=== PATIENT | male | born 1935 | race Caucasian/White ===

== ENCOUNTER 2017-10-21 08:40 | Inpatient (IN) | payer MEDICARE ==
[~2017-10-21] VITALS: Ht 175.3 cm; Wt 104.8 kg
[~2017-10-21 08:40] MED LIST: ASPI81EC PO; CALCA500CH; FERR325; GLIM4 PO; METF500C PO; NAPR220; RXHYDACE PO; SIMV10 PO; TRIHYD253A PO; Zestril30 MG
[2017-10-21 09:39] LABS: Base Excess Venous -12.4 mmol/L; Bicarbonate Venous 15.1 mmol/L (24.0-30.0); PCO2 Venous 44.2 mmHg (38-42); PO2 Venous 83.1 mmHg (38-42)
[2017-10-21 09:40] LABS: pH Blood Venous 7.17 (7.34-7.37)
[2017-10-21 09:41] LABS: BASOPHILS ABSOLUTE AUTO 0.02 K/mm3 (0.00-0.23); BASOPHILS PERCENT AUTO 0 % (0-2); EOSINOPHILS ABSOLUTE AUTO 0.02 K/mm3 (0.00-0.68); EOSINOPHILS PERCENT AUTO 0 % (0-6); Hematocrit 31.7 % (37.0-53.0); Hemoglobin 9.8 g/dL (13.5-17.5); IMMATURE GRAN ABSOLUTE AUTO 0.03 K/mm3 (0.00-0.10); IMMATURE GRAN PERCENT AUTO 0 % (0-1); LYMPHOCYTES ABSOLUTE AUTO 0.98 K/mm3 (0.84-5.20); LYMPHOCYTES PERCENT AUTO 14 % (21-46); MONOCYTES ABSOLUTE AUTO 0.48 K/mm3 (0.16-1.47); MONOCYTES PERCENT AUTO 7 % (4-13); Mean Corpuscular HGB 29.8 pg (26.0-34.0); Mean Corpuscular HGB Conc 30.9 g/dL (31.5-36.5); Mean Corpuscular Volume 96 fL (80-100); Mean Platelet Volume 9.4 fL (9.1-12.4); NEUTROPHILS ABSOLUTE AUTO 5.61 K/mm3 (1.96-9.15); NEUTROPHILS PERCENT AUTO 79 % (41-73); Platelet Count 235 K/mm3 (150-400); Red Blood Cell Count 3.29 M/mm3 (4.30-5.90); White Blood Cell Count 7.14 K/mm3 (4.00-11.30)
[2017-10-21 10:09] LABS: Magnesium, Blood 2.6 mg/dL (1.6-2.4); Troponin I <0.015 ng/mL (0.000-0.040)
[2017-10-21 10:13] LABS: Thyroid Stimulating Hormone 0.618 uIU/mL (0.360-4.800)
[2017-10-21 10:18] LABS: Alanine Aminotransfer (ALT/SGP 40 U/L (12-78); Albumin, Blood 3.9 g/dL (3.4-5.0); Albumin/Globulin Ratio 0.8 (0.8-1.8); Alk Phos 95 U/L (50-136); Anion Gap 11 mmol/L (6-16); Aspartate Aminotrans (AST/SGOT 35 U/L (12-37); Bilirubin, Total 0.4 mg/dL (0.1-1.0); Blood Urea Nitrogen 65 mg/dL (8-24); Bun/Creatinine Ratio 27.4 (12.0-20.0); CO2, Blood 17 mmol/L (21-32); Calcium, Blood 8.3 mg/dL (8.5-10.1); Chloride, Blood 114 mmol/L (98-108); Creatinine, Blood 2.37 mg/dL (0.60-1.20); Globulin, Blood 4.7 g/dL (2.2-4.0); Glomerular Filtration Rate 28 (60-); Glucose, Blood 29 mg/dL (70-99); Potassium, Blood 5.2 mmol/L (3.5-5.5); Sodium, Blood 142 mmol/L (136-145); Total Protein, Blood 8.6 g/dL (6.4-8.2)
[2017-10-21 12:22] LABS: Source, Urine Voided
[2017-10-21 12:25] LABS: Bilirubin, Urine Neg (Neg); Blood, Urine 2+ (Neg); Glucose Qualitative, Urine Neg (Neg); Ketones, Urine Neg (Neg); Leukocyte Esterase, Urine 1+ (Neg); Nitrite, Urine Neg (Neg); Protein, Urine 2+ (Neg); Urobilinogen, Urine NORM (Normal)
[2017-10-21 12:30] LABS: Appearance, Urine Clear (Clear); Color, Urine Pale Yellow (P-Yellow)
[2017-10-21 12:31] LABS: Bacteria Not Seen /hpf; Squamous Epithelial Cells Not Seen /hpf (Few)
[2017-10-21 12:32] LABS: Amorphous Light (0-Heavy); Hyaline Casts 0-2 /lpf (0-2)
[2017-10-22 04:45] LABS: Hemoglobin 8.1 g/dL (13.5-17.5); Mean Corpuscular HGB 29.3 pg (26.0-34.0); Mean Corpuscular HGB Conc 31.2 g/dL (31.5-36.5); Mean Corpuscular Volume 94 fL (80-100); Mean Platelet Volume 9.9 fL (9.1-12.4); Platelet Count 196 K/mm3 (150-400); RDW Coefficient Variation 16.5 % (11.7-14.2); RDW Standard Deviation 56.3 fL (35.1-46.3); Red Blood Cell Count 2.76 M/mm3 (4.30-5.90); White Blood Cell Count 6.95 K/mm3 (4.00-11.30)
[2017-10-22 05:03] LABS: Bun/Creatinine Ratio 25.7 (12.0-20.0); Calcium, Blood 7.6 mg/dL (8.5-10.1); Creatinine, Blood 2.49 mg/dL (0.60-1.20); Potassium, Blood 5.7 mmol/L (3.5-5.5)
[2017-10-22 05:12] LABS: Percent Saturation 13.5 % (20.0-50.0)
[2017-10-22 15:52] LABS: Bun/Creatinine Ratio 25.9 (12.0-20.0); Calcium, Blood 8.2 mg/dL (8.5-10.1); Creatinine, Blood 2.24 mg/dL (0.60-1.20); Potassium, Blood 5.9 mmol/L (3.5-5.5); Uric Acid, Blood 7.3 mg/dL (3.5-7.2)
[2017-10-22 15:55] LABS: Appearance, Urine Clear (Clear); Bilirubin, Urine Neg (Neg); Blood, Urine Neg (Neg); Color, Urine Yellow (P-Yellow); Glucose Qualitative, Urine Neg (Neg); Ketones, Urine Neg (Neg); Leukocyte Esterase, Urine 1+ (Neg); Nitrite, Urine Neg (Neg); Protein, Urine 1+ (Neg); Specific Gravity, Urine 1.015 (1.003-1.022); Urobilinogen, Urine NORM (Normal)
[2017-10-22 16:03] LABS: Albumin, Blood 3.2 g/dL (3.4-5.0); Anion Gap 9 mmol/L (6-16); Blood Urea Nitrogen 59 mg/dL (8-24); Bun/Creatinine Ratio 27.4 (12.0-20.0); CO2, Blood 20 mmol/L (21-32); Calcium, Blood 8.2 mg/dL (8.5-10.1); Chloride, Blood 113 mmol/L (98-108); Creatinine, Blood 2.15 mg/dL (0.60-1.20); Glomerular Filtration Rate 31 (60-); Glucose, Blood 84 mg/dL (70-99); Phosphorus, Blood 3.5 mg/dL (2.5-4.9); Potassium, Blood 5.9 mmol/L (3.5-5.5); Sodium, Blood 142 mmol/L (136-145)
[2017-10-22 16:11] LABS: Bacteria Not Seen /hpf; Red Blood Cells, Urine Not Seen /hpf (0-2); Squamous Epithelial Cells Not Seen /hpf (Few); White Blood Cells, Urine Not Seen /hpf (0-5); Yeast/Fungi Urine Not Seen /hpf
[2017-10-22 20:46] LABS: Albumin, Blood 3.2 g/dL (3.4-5.0); Anion Gap 9 mmol/L (6-16); Blood Urea Nitrogen 59 mg/dL (8-24); CO2, Blood 24 mmol/L (21-32); Chloride, Blood 106 mmol/L (98-108); Creatinine, Blood 2.27 mg/dL (0.60-1.20); Glomerular Filtration Rate 29 (60-); Glucose, Blood 199 mg/dL (70-99); Phosphorus, Blood 3.4 mg/dL (2.5-4.9); Sodium, Blood 139 mmol/L (136-145)
[2017-10-23 03:48] LABS: BASOPHILS ABSOLUTE AUTO 0.03 K/mm3 (0.00-0.23); BASOPHILS PERCENT AUTO 0 % (0-2); EOSINOPHILS ABSOLUTE AUTO 0.35 K/mm3 (0.00-0.68); EOSINOPHILS PERCENT AUTO 5 % (0-6); Hematocrit 26.3 % (37.0-53.0); Hemoglobin 8.3 g/dL (13.5-17.5); IMMATURE GRAN ABSOLUTE AUTO 0.04 K/mm3 (0.00-0.10); IMMATURE GRAN PERCENT AUTO 1 % (0-1); LYMPHOCYTES PERCENT AUTO 30 % (21-46); MONOCYTES ABSOLUTE AUTO 0.67 K/mm3 (0.16-1.47); MONOCYTES PERCENT AUTO 9 % (4-13); Mean Corpuscular HGB 28.8 pg (26.0-34.0); Mean Corpuscular HGB Conc 31.6 g/dL (31.5-36.5); Mean Platelet Volume 9.9 fL (9.1-12.4); NEUTROPHILS ABSOLUTE AUTO 4.32 K/mm3 (1.96-9.15); NEUTROPHILS PERCENT AUTO 56 % (41-73); Platelet Count 212 K/mm3 (150-400); RDW Coefficient Variation 15.9 % (11.7-14.2); RDW Standard Deviation 53.1 fL (35.1-46.3); Red Blood Cell Count 2.88 M/mm3 (4.30-5.90); White Blood Cell Count 7.71 K/mm3 (4.00-11.30)
[2017-10-23 03:49] LABS: Mean Corpuscular Volume 91 fL (80-100)
[2017-10-23 04:14] LABS: Albumin, Blood 3.1 g/dL (3.4-5.0); Anion Gap 8 mmol/L (6-16); Blood Urea Nitrogen 60 mg/dL (8-24); Bun/Creatinine Ratio 27.6 (12.0-20.0); CO2, Blood 26 mmol/L (21-32); Calcium, Blood 7.5 mg/dL (8.5-10.1); Chloride, Blood 106 mmol/L (98-108); Creatinine, Blood 2.17 mg/dL (0.60-1.20); Glomerular Filtration Rate 31 (60-); Glucose, Blood 144 mg/dL (70-99); Phosphorus, Blood 4.1 mg/dL (2.5-4.9); Potassium, Blood 4.4 mmol/L (3.5-5.5); Sodium, Blood 140 mmol/L (136-145)
[2017-10-24] MEDS ORDERED: LISI20 PO (00:17)
[2017-10-24 03:48] LABS: BASOPHILS ABSOLUTE AUTO 0.02 K/mm3 (0.00-0.23); BASOPHILS PERCENT AUTO 0 % (0-2); EOSINOPHILS ABSOLUTE AUTO 0.27 K/mm3 (0.00-0.68); EOSINOPHILS PERCENT AUTO 3 % (0-6); Hematocrit 25.8 % (37.0-53.0); Hemoglobin 8.2 g/dL (13.5-17.5); IMMATURE GRAN ABSOLUTE AUTO 0.03 K/mm3 (0.00-0.10); IMMATURE GRAN PERCENT AUTO 0 % (0-1); LYMPHOCYTES ABSOLUTE AUTO 1.61 K/mm3 (0.84-5.20); LYMPHOCYTES PERCENT AUTO 19 % (21-46); MONOCYTES ABSOLUTE AUTO 0.81 K/mm3 (0.16-1.47); MONOCYTES PERCENT AUTO 10 % (4-13); Mean Corpuscular HGB 28.6 pg (26.0-34.0); Mean Corpuscular HGB Conc 31.8 g/dL (31.5-36.5); Mean Corpuscular Volume 90 fL (80-100); Mean Platelet Volume 9.6 fL (9.1-12.4); NEUTROPHILS ABSOLUTE AUTO 5.66 K/mm3 (1.96-9.15); NEUTROPHILS PERCENT AUTO 67 % (41-73); Platelet Count 220 K/mm3 (150-400); RDW Coefficient Variation 15.6 % (11.7-14.2); Red Blood Cell Count 2.87 M/mm3 (4.30-5.90)
[2017-10-24 04:03] LABS: Anion Gap 7 mmol/L (6-16); Blood Urea Nitrogen 48 mg/dL (8-24); CO2, Blood 29 mmol/L (21-32); Calcium, Blood 7.7 mg/dL (8.5-10.1); Chloride, Blood 107 mmol/L (98-108); Creatinine, Blood 1.78 mg/dL (0.60-1.20); Glomerular Filtration Rate 39 (60-); Glucose, Blood 101 mg/dL (70-99); Phosphorus, Blood 3.3 mg/dL (2.5-4.9); Potassium, Blood 4.3 mmol/L (3.5-5.5); Sodium, Blood 143 mmol/L (136-145)
[2017-10-24] MEDS ORDERED: FERROUS SULFATE PO (12:07)
[2017-10-24] MEDS ORDERED: AMLO5 PO (12:10)
[2017-10-26 14:10] LABS: ALBUMIN 3.2 g/dL (2.9-4.4); ALPHA-1-GLOBULIN 0.2 g/dL (0.0-0.4); ALPHA-2-GLOBULIN 0.9 g/dL (0.4-1.0); GAMMA GLOBULIN 1.3 g/dL (0.4-1.8); GLOBULIN, TOTAL 3.3 g/dL (2.2-3.9); IMMUNOGLOBULIN A, QN, SERUM 292 mg/dL (61-437); IMMUNOGLOBULIN G, QN, SERUM 1157 mg/dL (700-1600); IMMUNOGLOBULIN M, QN, SERUM 50 mg/dL (15-143); M-SPIKE Not Observed g/dL (Not Observed); PROTEIN, TOTAL, SERUM 6.5 g/dL (6.0-8.5)
== END 2017-10-24 15:38 | disposition home or self-care (01) | DRG 243 ==
LOC: ER 08:40 → MEDS 08:41 → PCU 12:33 → MEDS 12:35 → PCU 18:32 → MEDS 18:33 → PCU 18:55
PROVIDERS: Emergency Medicine; Internal Medicine
PROC: 0JH606Z Insertion of Pacemaker, Dual Chamber into Chest Subcutaneous Tissue and Fascia, Open Approach (ICD-10-PCS; principal; 2017-10-23)
PROC: 02H63JZ Insertion of Pacemaker Lead into Right Atrium, Percutaneous Approach (ICD-10-PCS; 2017-10-23)
PROC: 02HK3JZ Insertion of Pacemaker Lead into Right Ventricle, Percutaneous Approach (ICD-10-PCS; 2017-10-23)
DX: I44.0 Atrioventricular block, first degree (principal); N17.9 Acute kidney failure, unspecified; E87.2 Acidosis; R00.1 Bradycardia, unspecified; I44.2 Atrioventricular block, complete; T38.3X1A Poisoning by insulin and oral hypoglycemic [antidiabetic] drugs, accidental (unintentional), initial encounter; Z79.84 Long term (current) use of oral hypoglycemic drugs; D50.9 Iron deficiency anemia, unspecified; R53.1 Weakness; E11.649 Type 2 diabetes mellitus with hypoglycemia without coma; I25.10 Atherosclerotic heart disease of native coronary artery without angina pectoris; I35.0 Nonrheumatic aortic (valve) stenosis; Z85.46 Personal history of malignant neoplasm of prostate; Z92.3 Personal history of irradiation; Z87.891 Personal history of nicotine dependence; E86.0 Dehydration; N18.3 Chronic kidney disease, stage 3 (moderate); I12.9 Hypertensive chronic kidney disease with stage 1 through stage 4 chronic kidney disease, or unspecified chronic kidney disease; I44.1 Atrioventricular block, second degree; E87.5 Hyperkalemia; Y92.9 Unspecified place or not applicable; E11.22 Type 2 diabetes mellitus with diabetic chronic kidney disease
CPT/HCPCS: 36415; 71045; 76770; 80048; 80053; 80069; 81001; 82330; 82550; 82728; 82784; 82803; 82947; 83540; 83550; 83605; 83735; 83880; 84132; 84165; 84443; 84484; 84550; 85025; 85027; 86334; 87040; 87086; 93005; 93010; 96361; 96374; 97161; 97165; 97535; 99152; 99153; 99285; C1785; C1898; G0378; G8978; G8979; G8980; G8987; G8988; G8989; J0360; J0610; J0690; J1644; J1815; J1940; J2250; J3010; J7030; J7040; J7042; J7070; J7120

== ENCOUNTER 2018-10-20 10:38 | Day surgery (SDC) | payer MEDICARE ==
[2018-10-19 12:52] LABS: Hematocrit 24.7 % (37.0-53.0); Hemoglobin 7.5 g/dL (13.5-17.5)
[2018-10-19 13:07] LABS: Albumin, Blood 3.8 g/dL (3.4-5.0); Anion Gap 9 mmol/L (6-16); Blood Urea Nitrogen 33 mg/dL (8-24); Bun/Creatinine Ratio 18.8 (12.0-20.0); CO2, Blood 23 mmol/L (21-32); Calcium, Blood 8.4 mg/dL (8.5-10.1); Chloride, Blood 108 mmol/L (98-108); Creatinine, Blood 1.76 mg/dL (0.60-1.20); Glomerular Filtration Rate 39 (60-); Glucose, Blood 147 mg/dL (70-99); Phosphorus, Blood 3.5 mg/dL (2.5-4.9); Potassium, Blood 4.6 mmol/L (3.5-5.5); Sodium, Blood 140 mmol/L (136-145)
[~2018-10-20 10:38] MED LIST changes: +AMLO5 PO; +FERROUS SULFATE PO; +LISI20 PO
[2018-10-20] MEDS ORDERED: CLOP75 PO (16:48)
[2018-10-20] MEDS ORDERED: LO-DOSE ASPIRIN81 MG PO (16:49)
[2018-10-20] MEDS ORDERED: ASCO500 PO (16:50)
== END 2018-10-20 16:44 | disposition home or self-care (01) ==
LOC: ATC 10:38 → LAB 10:38 → EDSTATUS 10:39 → ATC 16:44
PROVIDERS: Internal Medicine
DX: D50.9 Iron deficiency anemia, unspecified (principal); I12.9 Hypertensive chronic kidney disease with stage 1 through stage 4 chronic kidney disease, or unspecified chronic kidney disease; E11.22 Type 2 diabetes mellitus with diabetic chronic kidney disease; N18.3 Chronic kidney disease, stage 3 (moderate); Z79.899 Other long term (current) drug therapy; Z79.82 Long term (current) use of aspirin; Z79.01 Long term (current) use of anticoagulants; Z86.73 Personal history of transient ischemic attack (TIA), and cerebral infarction without residual deficits; Z87.891 Personal history of nicotine dependence
CPT/HCPCS: 36415; 36430; 80069; 85014; 85018; 86850; 86900; 86901; 86923; J7050; P9016

== ENCOUNTER 2019-04-26 13:26 | Observation (INO) | payer MEDICARE ==
[~2019-04-26] VITALS: Ht 172.7 cm; Wt 98.5 kg
[~2019-04-26 13:26] MED LIST changes: -AMLO5 PO; -FERROUS SULFATE PO; -LISI20 PO; -SIMV10 PO
[2019-04-26 14:30] LABS: Alanine Aminotransfer (ALT/SGP 22 U/L (12-78); Albumin, Blood 3.6 g/dL (3.4-5.0); Albumin/Globulin Ratio 0.9 (0.8-1.8); Alk Phos 89 U/L (50-136); Anion Gap 9 mmol/L (6-16); Aspartate Aminotrans (AST/SGOT 21 U/L (12-37); Bilirubin, Total 0.2 mg/dL (0.1-1.0); Blood Urea Nitrogen 39 mg/dL (8-24); Bun/Creatinine Ratio 18.8 (12.0-20.0); CO2, Blood 18 mmol/L (21-32); Calcium, Blood 8.5 mg/dL (8.5-10.1); Chloride, Blood 112 mmol/L (98-108); Creatinine, Blood 2.07 mg/dL (0.60-1.20); Glomerular Filtration Rate 33 (60-); Glucose, Blood 131 mg/dL (70-99); Potassium, Blood 4.9 mmol/L (3.5-5.5); Sodium, Blood 139 mmol/L (136-145); Total Protein, Blood 7.6 g/dL (6.4-8.2); Troponin I <0.015 ng/mL (0.000-0.040)
[2019-04-26 15:12] LABS: BASOPHILS ABSOLUTE AUTO 0.03 K/mm3 (0.00-0.23); BASOPHILS PERCENT AUTO 0 % (0-2); EOSINOPHILS ABSOLUTE AUTO 0.07 K/mm3 (0.00-0.68); EOSINOPHILS PERCENT AUTO 1 % (0-6); Hematocrit 21.5 % (37.0-53.0); Hemoglobin 6.6 g/dL (13.5-17.5); IMMATURE GRAN ABSOLUTE AUTO 0.13 K/mm3 (0.00-0.10); IMMATURE GRAN PERCENT AUTO 2 % (0-1); LYMPHOCYTES ABSOLUTE AUTO 1.04 K/mm3 (0.84-5.20); LYMPHOCYTES PERCENT AUTO 12 % (21-46); MONOCYTES ABSOLUTE AUTO 0.51 K/mm3 (0.16-1.47); MONOCYTES PERCENT AUTO 6 % (4-13); Mean Corpuscular HGB 30.1 pg (26.0-34.0); Mean Corpuscular HGB Conc 30.7 g/dL (31.5-36.5); Mean Corpuscular Volume 98 fL (80-100); NEUTROPHILS ABSOLUTE AUTO 6.61 K/mm3 (1.96-9.15); NEUTROPHILS PERCENT AUTO 79 % (41-73); NRBC ABSOLUTE 0.03 K/mm3 (0.00-0.02); NRBC Auto 0.4 /100 WBC (0.0-0.2); Platelet Count 309 K/mm3 (150-400); RDW Coefficient Variation 17.5 % (11.7-14.2); RDW Standard Deviation 63.1 fL (35.1-46.3); Red Blood Cell Count 2.19 M/mm3 (4.30-5.90); White Blood Cell Count 8.39 K/mm3 (4.00-11.30)
[2019-04-26] MEDS ORDERED: FURO20 PO (15:54)
[2019-04-26] MEDS ORDERED: OMEPRAZOLE MAGN20 M1 PO (15:56)
[2019-04-26] MEDS ORDERED: AMLO5 PO (15:57)
[2019-04-26] MEDS ORDERED: CLOP75 PO (15:58)
[2019-04-26] MEDS ORDERED: Aspir 8181 MG PO (16:01)
[2019-04-26] MEDS ORDERED: Simvastatin20 MG PO (16:16)
[2019-04-26] MEDS ORDERED: FERSU300 PO (16:17)
[2019-04-26] MEDS ORDERED: Amaryl2 MG PO (16:17)
[2019-04-26] MEDS ORDERED: ASCO500 PO (16:17)
[2019-04-26] MEDS ORDERED: LISI20 PO (16:18)
--- NOTE | 2019-04-26 18:08 | NUR ---
PT ADMITTED/JOSE CALLED FOR CONSULT. PT ADMITTED IN STABLE CONDITION WITH VSS. BLOOD RUNNING ON ADMIT. PT DENIES SOB OR CP AT THIS TIME. LUNGS CLEAR. PT ORIENTED TO ROOM. CALL LIGHT IN REACH. WILL CONTINUE TO MONITOR UNTIL TURNOVER IS COMPLETE DR. GARCIA CALLED FOR CONSULT. ORDERED TO START 1/2NS WITH 75MEQ SODIUM BICARB AT 50 ML/HR. PT ADDED TO DR. BLACKMAN.
--- NOTE | 2019-04-26 22:27 | NUR ---
2110: 1ST UNIT OF PRBCs TRANSFUSED, PATIENT TOLERATING WELL, VSS, DENIES CHEST PAIN, SOB, BUT CONTINUES TO BE DYSPNEIC WITH EXERTION. GAVE LASIX WAITING FOR LABS TO BE DRAWN. 2ND UNIT YET TO BE GIVEN.
--- NOTE | 2019-04-26 23:49 | NUR ---
STARTED 2ND UNIT PRBCs. PT TOLERATING WELL. VSS. PT DENIES CP/SOB 98% ORA
[2019-04-27 05:06] LABS: Hematocrit 26.1 % (37.0-53.0); Hemoglobin 8.3 g/dL (13.5-17.5); Mean Corpuscular HGB 30.2 pg (26.0-34.0); Mean Corpuscular HGB Conc 31.8 g/dL (31.5-36.5); Mean Platelet Volume 8.9 fL (9.1-12.4); NRBC ABSOLUTE 0.03 K/mm3 (0.00-0.02); NRBC Auto 0.4 /100 WBC (0.0-0.2); Platelet Count 273 K/mm3 (150-400); RDW Coefficient Variation 17.3 % (11.7-14.2); RDW Standard Deviation 58.6 fL (35.1-46.3); Red Blood Cell Count 2.75 M/mm3 (4.30-5.90); White Blood Cell Count 8.08 K/mm3 (4.00-11.30)
[2019-04-27 05:10] LABS: Mean Corpuscular Volume 95 fL (80-100)
[2019-04-27 05:31] LABS: Albumin, Blood 3.4 g/dL (3.4-5.0); Anion Gap 9 mmol/L (6-16); Blood Urea Nitrogen 40 mg/dL (8-24); Bun/Creatinine Ratio 19.5 (12.0-20.0); CO2, Blood 23 mmol/L (21-32); Calcium, Blood 8.3 mg/dL (8.5-10.1); Chloride, Blood 109 mmol/L (98-108); Creatinine, Blood 2.05 mg/dL (0.60-1.20); Glomerular Filtration Rate 33 (60-); Glucose, Blood 79 mg/dL (70-99); Magnesium, Blood 2.1 mg/dL (1.6-2.4); Phosphorus, Blood 4.4 mg/dL (2.5-4.9); Potassium, Blood 4.4 mmol/L (3.5-5.5); Sodium, Blood 141 mmol/L (136-145)
[2019-04-27 05:35] LABS: Percent Saturation 28.1 % (20.0-50.0)
--- NOTE | 2019-04-27 12:10 | NUR ---
PT DISCHARGED THE PT VERBALIZED UNDERSTANDING OF THE DC INSTRUCTIONS, BEFORE DISCHARGE THE PT AMBULTED IN THE ALEJ[place]O ON THE MEDICAL FLOOR FOR THE ENTIRE LOOP, WAS MILDLY SOB, DENIED ANY CHEST PAIN, THE PT FELT THAT THE MILD SHORTNESS OF BREATH FELT NORMAL TO HIM, CONSIDERING HIS LACK OF MOBILITY OVER THE LAST WEEK, THE PT STATED THAT HE FELT HE WAS READY FOR DISCHARGE, THE PT WAS ESCORTED VIA WHEELCHAIR ACCOMPANIED BY THE SHOP MANAGER, THE PT HAD A FOLLOW UP APPOINTMENT ALREADY SCHEDULED WITH HIS PCP
[2019-06-01] MEDS ORDERED: SANDOSTATI50 MCG/1 M (08:15)
== END 2019-04-27 11:17 | disposition home or self-care (01) ==
LOC: ER 13:26 → MEDS 13:27 → ENPENDDIS 04-27 10:46 → MEDS 04-27 11:17
PROVIDERS: Emergency Medicine; Internal Medicine Nephrology; Physician Assistant; ADMIT Internal Medicine
PROC: 30243N1 Transfusion of Nonautologous Red Blood Cells into Central Vein, Percutaneous Approach (ICD-10-PCS; principal; 2019-04-26)
DX: D50.0 Iron deficiency anemia secondary to blood loss (chronic) (principal); I25.119 Atherosclerotic heart disease of native coronary artery with unspecified angina pectoris; N17.9 Acute kidney failure, unspecified; I12.9 Hypertensive chronic kidney disease with stage 1 through stage 4 chronic kidney disease, or unspecified chronic kidney disease; E11.22 Type 2 diabetes mellitus with diabetic chronic kidney disease; N18.9 Chronic kidney disease, unspecified; E88.09 Other disorders of plasma-protein metabolism, not elsewhere classified; I35.0 Nonrheumatic aortic (valve) stenosis; E87.2 Acidosis; Z95.0 Presence of cardiac pacemaker; Z95.5 Presence of coronary angioplasty implant and graft; Z87.891 Personal history of nicotine dependence; Z79.02 Long term (current) use of antithrombotics/antiplatelets; Z79.899 Other long term (current) drug therapy
CPT/HCPCS: 36415; 36430; 71046; 76770; 80053; 80069; 83540; 83550; 83615; 83735; 83880; 84484; 85025; 85027; 86850; 86900; 86901; 86923; 93005; 93010; 96374; 96375; 99285-25; G0378; J1940; J7030; P9016

== ENCOUNTER 2019-05-18 00:42 | Day surgery (SDC) | payer MEDICARE ==
[~2019-05-18 00:42] MED LIST changes: +AMLO5 PO; +ASCO500 PO; +Amaryl2 MG PO; +Aspir 8181 MG PO; +CLOP75 PO; +FERSU300 PO; +FURO20 PO; +LISI20 PO; +OMEPRAZOLE MAGN20 M1 PO; +Simvastatin20 MG PO
--- NOTE | 2019-05-18 14:15 | NUR ---
PT C/O SOB AND CHEST PAIN UPON ENTRY INTO CLINIC WAITING AREA. PT STATES THAT AFTER SITTING TO REST THAT CHEST PAIN IS GONE. PT STATES IS FROM NEEDING BLOOD TRANSFUSION. NO PAIN AT THIS TIME.
[2019-06-01] MEDS ORDERED: SANDOSTATI50 MCG/1 M (08:15)
== END 2019-05-18 23:21 | disposition home or self-care (01) ==
LOC: OLS 00:42 → ATC 00:42
PROC: 30243N1 Transfusion of Nonautologous Red Blood Cells into Central Vein, Percutaneous Approach (ICD-10-PCS; principal; 2019-05-18)
DX: D50.9 Iron deficiency anemia, unspecified (principal); I12.9 Hypertensive chronic kidney disease with stage 1 through stage 4 chronic kidney disease, or unspecified chronic kidney disease; E11.22 Type 2 diabetes mellitus with diabetic chronic kidney disease; N18.4 Chronic kidney disease, stage 4 (severe); E78.5 Hyperlipidemia, unspecified; I25.10 Atherosclerotic heart disease of native coronary artery without angina pectoris; I35.0 Nonrheumatic aortic (valve) stenosis; H47.019 Ischemic optic neuropathy, unspecified eye; Z79.82 Long term (current) use of aspirin; Z79.02 Long term (current) use of antithrombotics/antiplatelets; Z79.84 Long term (current) use of oral hypoglycemic drugs; Z79.899 Other long term (current) drug therapy; Z85.46 Personal history of malignant neoplasm of prostate; Z92.3 Personal history of irradiation; Z87.891 Personal history of nicotine dependence
CPT/HCPCS: 36415; 36430; 86850; 86900; 86901; 86923; J7050; P9016

== ENCOUNTER 2019-06-29 00:25 | Day surgery (SDC) | payer MEDICARE ==
[~2019-06-29 00:25] MED LIST changes: +SANDOSTATI50 MCG/1 M
[2019-06-29 12:29] LABS: BASOPHILS ABSOLUTE AUTO 0.05 K/mm3 (0.00-0.23); BASOPHILS PERCENT AUTO 1 % (0-2); EOSINOPHILS PERCENT AUTO 1 % (0-6); Hematocrit 34.2 % (37.0-53.0); Hemoglobin 10.8 g/dL (13.5-17.5); IMMATURE GRAN ABSOLUTE AUTO 0.04 K/mm3 (0.00-0.10); IMMATURE GRAN PERCENT AUTO 0 % (0-1); LYMPHOCYTES ABSOLUTE AUTO 1.31 K/mm3 (0.84-5.20); LYMPHOCYTES PERCENT AUTO 14 % (21-46); MONOCYTES PERCENT AUTO 8 % (4-13); Mean Corpuscular HGB 29.4 pg (26.0-34.0); Mean Corpuscular HGB Conc 31.6 g/dL (31.5-36.5); Mean Corpuscular Volume 93 fL (80-100); Mean Platelet Volume 9.8 fL (9.1-12.4); NEUTROPHILS ABSOLUTE AUTO 7.17 K/mm3 (1.96-9.15); NEUTROPHILS PERCENT AUTO 76 % (41-73); Platelet Count 216 K/mm3 (150-400); RDW Coefficient Variation 15.9 % (11.7-14.2); RDW Standard Deviation 52.4 fL (35.1-46.3); Red Blood Cell Count 3.67 M/mm3 (4.30-5.90); White Blood Cell Count 9.47 K/mm3 (4.00-11.30)
== END 2019-06-29 12:20 | disposition home or self-care (01) ==
LOC: ATC 00:25
PROVIDERS: Family Medicine
DX: D50.0 Iron deficiency anemia secondary to blood loss (chronic) (principal); I10 Essential (primary) hypertension; E11.9 Type 2 diabetes mellitus without complications; E66.9 Obesity, unspecified; I35.9 Nonrheumatic aortic valve disorder, unspecified; J30.89 Other allergic rhinitis; C61 Malignant neoplasm of prostate; E78.49 Other hyperlipidemia; Z79.84 Long term (current) use of oral hypoglycemic drugs; Z79.82 Long term (current) use of aspirin; Z79.02 Long term (current) use of antithrombotics/antiplatelets; Z79.899 Other long term (current) drug therapy; Z87.891 Personal history of nicotine dependence; Z68.34 Body mass index [BMI] 34.0-34.9, adult
CPT/HCPCS: 36415; 85025; 86850; 86900; 86901; 86923; J7050; P9016

== ENCOUNTER 2019-07-13 01:26 | Day surgery (SDC) | payer MEDICARE ==
--- NOTE | 2019-07-13 09:10 | NUR ---
PT RESTING. PT DENIES ANY DIZZINESS/LIGHTHEADEDNESS/SOB AT THIS TIME. WILL CONTINUE TO MONITOR.
--- NOTE | 2019-07-13 11:26 | NUR ---
LUNG SOUNDS AFTER TRASFUSION FAINT INSP CRACKLES TO BILAt BASES, CLEAR REST OF LUNG BAKER.
--- NOTE | 2019-07-13 11:28 | NUR ---
LAB DRAW DUE AFTER TRANSFUSION
[2019-07-13 12:23] LABS: BASOPHILS ABSOLUTE AUTO 0.04 K/mm3 (0.00-0.23); BASOPHILS PERCENT AUTO 1 % (0-2); EOSINOPHILS ABSOLUTE AUTO 0.05 K/mm3 (0.00-0.68); EOSINOPHILS PERCENT AUTO 1 % (0-6); Hematocrit 28.5 % (37.0-53.0); Hemoglobin 9.2 g/dL (13.5-17.5); IMMATURE GRAN ABSOLUTE AUTO 0.06 K/mm3 (0.00-0.10); IMMATURE GRAN PERCENT AUTO 1 % (0-1); LYMPHOCYTES ABSOLUTE AUTO 0.91 K/mm3 (0.84-5.20); LYMPHOCYTES PERCENT AUTO 11 % (21-46); MONOCYTES ABSOLUTE AUTO 0.55 K/mm3 (0.16-1.47); MONOCYTES PERCENT AUTO 7 % (4-13); Mean Corpuscular HGB 29.9 pg (26.0-34.0); Mean Corpuscular HGB Conc 32.3 g/dL (31.5-36.5); Mean Corpuscular Volume 93 fL (80-100); Mean Platelet Volume 9.5 fL (9.1-12.4); NEUTROPHILS ABSOLUTE AUTO 6.82 K/mm3 (1.96-9.15); NEUTROPHILS PERCENT AUTO 81 % (41-73); Platelet Count 270 K/mm3 (150-400); RDW Coefficient Variation 14.7 % (11.7-14.2); RDW Standard Deviation 49.9 fL (35.1-46.3); Red Blood Cell Count 3.08 M/mm3 (4.30-5.90); White Blood Cell Count 8.43 K/mm3 (4.00-11.30)
== END 2019-07-13 12:12 | disposition home or self-care (01) ==
LOC: ATC 01:26
PROVIDERS: Family Medicine
DX: D50.9 Iron deficiency anemia, unspecified (principal); I10 Essential (primary) hypertension; E11.9 Type 2 diabetes mellitus without complications; E66.9 Obesity, unspecified; K21.9 Gastro-esophageal reflux disease without esophagitis; I35.9 Nonrheumatic aortic valve disorder, unspecified; E78.49 Other hyperlipidemia; Z87.891 Personal history of nicotine dependence; Z68.33 Body mass index [BMI] 33.0-33.9, adult; Z79.51 Long term (current) use of inhaled steroids; Z79.82 Long term (current) use of aspirin; Z79.84 Long term (current) use of oral hypoglycemic drugs; Z79.02 Long term (current) use of antithrombotics/antiplatelets; Z79.899 Other long term (current) drug therapy
CPT/HCPCS: 36415; 36430; 85025; 86850; 86900; 86901; 86923; J7050; P9016

== ENCOUNTER 2019-07-24 23:11 | Inpatient (IN) | payer MEDICARE ==
[~2019-07-24] VITALS: Ht 172.7 cm; Wt 92.3 kg
[2019-07-24 23:54] LABS: pH Blood Arterial 7.33 (7.35-7.45)
[2019-07-25 00:05] LABS: Albumin, Blood 3.5 g/dL (3.4-5.0); Albumin/Globulin Ratio 0.8 (0.8-1.8); Bilirubin, Total 0.6 mg/dL (0.1-1.0); Bun/Creatinine Ratio 15.2 (12.0-20.0); Calcium, Blood 7.7 mg/dL (8.5-10.1); Creatinine, Blood 2.57 mg/dL (0.60-1.20); Globulin, Blood 4.6 g/dL (2.2-4.0); Potassium, Blood 4.9 mmol/L (3.5-5.5); Total Protein, Blood 8.1 g/dL (6.4-8.2); Troponin I 0.025 ng/mL (0.000-0.040)
[2019-07-25 00:07] LABS: BASOPHILS ABSOLUTE AUTO 0.04 K/mm3 (0.00-0.23); BASOPHILS PERCENT AUTO 0 % (0-2); EOSINOPHILS ABSOLUTE AUTO 0.03 K/mm3 (0.00-0.68); EOSINOPHILS PERCENT AUTO 0 % (0-6); Hematocrit 29.9 % (37.0-53.0); Hemoglobin 9.1 g/dL (13.5-17.5); IMMATURE GRAN ABSOLUTE AUTO 0.14 K/mm3 (0.00-0.10); IMMATURE GRAN PERCENT AUTO 1 % (0-1); LYMPHOCYTES ABSOLUTE AUTO 1.51 K/mm3 (0.84-5.20); LYMPHOCYTES PERCENT AUTO 9 % (21-46); MONOCYTES PERCENT AUTO 10 % (4-13); Mean Corpuscular HGB 29.6 pg (26.0-34.0); Mean Corpuscular HGB Conc 30.4 g/dL (31.5-36.5); Mean Platelet Volume 10.1 fL (9.1-12.4); NEUTROPHILS ABSOLUTE AUTO 14.41 K/mm3 (1.96-9.15); NEUTROPHILS PERCENT AUTO 81 % (41-73); Platelet Count 336 K/mm3 (150-400); RDW Coefficient Variation 15.6 % (11.7-14.2); Red Blood Cell Count 3.07 M/mm3 (4.30-5.90); White Blood Cell Count 17.83 K/mm3 (4.00-11.30)
[2019-07-25 00:10] LABS: Mean Corpuscular Volume 97 fL (80-100)
[2019-07-25 01:16] LABS: Adenovirus Not Detected (NOT DETECT); Bordetella pertussis Not Detected (NOT DETECT); Chlamydophila pneumoniae Not Detected (NOT DETECT); Coronavirus 229E Not Detected (NOT DETECT); Coronavirus HKU1 Not Detected (NOT DETECT); Coronavirus NL63 Not Detected (NOT DETECT); Coronavirus OC43 Not Detected (NOT DETECT); Human Metapneumovirus Not Detected (NOT DETECT); Human Rhinovirus/Enterovirus Not Detected (NOT DETECT); Influenza A/2009-H1 Not Detected (NOT DETECT); Influenza A/H1 Not Detected (NOT DETECT); Influenza A/H3 Not Detected (NOT DETECT); Influenza B Not Detected (NOT DETECT); Mycoplasma pneumoniae Not Detected (NOT DETECT); Parainfluenza Virus 1 Not Detected (NOT DETECT); Parainfluenza Virus 2 Not Detected (NOT DETECT); Parainfluenza Virus 3 Not Detected (NOT DETECT); Parainfluenza Virus 4 Not Detected (NOT DETECT); Respiratory Syncytial Virus Not Detected (NOT DETECT)
[2019-07-25] MEDS ORDERED: FURO20 PO (04:58)
--- NOTE | 2019-07-25 06:06 | NUR ---
PCU ADMIT / SHIFT SUMMARY PT BROUGHT TO PCU-09 FROM ER BY MU @ APPROX 5059. PT SLID OVER BY 4 NURSING STAFF MEMBERS & 1 RT. PT A&O X4. VSS. LUNG SOUNDS COARSE, DIM T/O. SPO2 > 92% ON 4L NC, TRANSITIONED TO BIPAP: 19/09, FIO2 50% ONCE SETTLED IN RM. PT REPORTS BREATHING IMPROVED SINCE BEING IN HOSPITAL. MONITOR SHOWS PACING, HR 70's. PT REPORTS BEING SCHEDULED FOR 2 UNITS OF BLOOD TODAY & TAVR @ [facility] TOMORROW 07/25. WILL CONTINUE TO MONITOR AND PROVIDE CARE UNTIL REPORT OFF TO DAY SHIFT RN.
--- NOTE | 2019-07-25 08:10 | NUR ---
AM NOTE... ASSUMED CARE OF PT APROX 0700. PT IS A&Ox4 AND SBA IN THE ROOM. PT WAS ADMITTED FOR CP/SOB. PT WAS ON BIPAP AND IS CURRENTLY ON 2L NC WITH SATS>90%. PT'S VS STABLE AT THIS TIME. PT IS ON R/O FOR COVID-19. PT CURRENTLY DENIES ANY CHEST PAIN/PRESSURE N/V OR SOB AT THIS TIME. L/S CLEAR IN THE UPPER LOBES W/CRACKLES NOTED IN THE BASES. BT PRESENT AND HYPERACTIVE, ABD IS SOFT AND NONTENDER TO PALP. LOUD MURMUR IS HEARD WHEN AUSCULTATING THE PT'S HEART. CALL LIGHT IN REACH WILL CONTINUE TO MONITOR.
[2019-07-25 08:36] LABS: Hematocrit 24.8 % (37.0-53.0); Hemoglobin 7.6 g/dL (13.5-17.5); Mean Corpuscular HGB Conc 30.6 g/dL (31.5-36.5); Mean Corpuscular Volume 95 fL (80-100); Platelet Count 238 K/mm3 (150-400); RDW Coefficient Variation 15.4 % (11.7-14.2); RDW Standard Deviation 53.1 fL (35.1-46.3); Red Blood Cell Count 2.62 M/mm3 (4.30-5.90); White Blood Cell Count 12.24 K/mm3 (4.00-11.30)
[2019-07-25 08:55] LABS: Albumin, Blood 3.1 g/dL (3.4-5.0); Albumin/Globulin Ratio 0.8 (0.8-1.8); Bilirubin, Total 0.7 mg/dL (0.1-1.0); Bun/Creatinine Ratio 16.2 (12.0-20.0); Calcium, Blood 7.9 mg/dL (8.5-10.1); Creatinine, Blood 2.66 mg/dL (0.60-1.20); Globulin, Blood 4.1 g/dL (2.2-4.0); Potassium, Blood 4.8 mmol/L (3.5-5.5); Total Protein, Blood 7.2 g/dL (6.4-8.2)
[2019-07-25 09:16] LABS: Troponin I 6.34 ng/mL (0.000-0.040)
[2019-07-25 16:38] LABS: Hematocrit 27.9 % (37.0-53.0); Hemoglobin 8.9 g/dL (13.5-17.5); Mean Corpuscular HGB 29.7 pg (26.0-34.0); Mean Corpuscular HGB Conc 31.9 g/dL (31.5-36.5); Mean Corpuscular Volume 93 fL (80-100); Mean Platelet Volume 10.8 fL (9.1-12.4); Platelet Count 250 K/mm3 (150-400); RDW Coefficient Variation 16.7 % (11.7-14.2); RDW Standard Deviation 56.6 fL (35.1-46.3)
[2019-07-25 17:08] LABS: Troponin I 4.03 ng/mL (0.000-0.040)
--- NOTE | 2019-07-25 18:11 | NUR ---
SHIFT SUMMARY... NO ACUTE NEGATIVE CHANGES NOTED THIS SHIFT. PT'S BP HAS BEEN ON THE LOW SIDE, THIS HAS IMPROVED SINCE 1UNIT OF PRBCS WAS TRANSFUSED. PT HAS BEEN ON L NC WITH O2 SATS >90% T/O SHIFT. PT DID NOT USE BIPAP TODAY. PT IS R/O COVID 19, AND IS A POSSIBLE COBRA TRANSFER TO HAVE TAVR. PT HAS BEEN UP IN CHAIR APROX 2 HOURS AND IS SBA. CALL LIGHT IN REACH WILL CONTINUE TO MONITOR UNTIL REPORT IS GIVEN TO ONCOMING RN.
[2019-07-26 04:01] LABS: BASOPHILS ABSOLUTE AUTO 0.03 K/mm3 (0.00-0.23); BASOPHILS PERCENT AUTO 0 % (0-2); EOSINOPHILS ABSOLUTE AUTO 0.04 K/mm3 (0.00-0.68); EOSINOPHILS PERCENT AUTO 0 % (0-6); Hematocrit 26.5 % (37.0-53.0); Hemoglobin 8.5 g/dL (13.5-17.5); IMMATURE GRAN ABSOLUTE AUTO 0.07 K/mm3 (0.00-0.10); IMMATURE GRAN PERCENT AUTO 1 % (0-1); LYMPHOCYTES PERCENT AUTO 7 % (21-46); MONOCYTES ABSOLUTE AUTO 1.34 K/mm3 (0.16-1.47); MONOCYTES PERCENT AUTO 11 % (4-13); Mean Corpuscular HGB 29.5 pg (26.0-34.0); Mean Corpuscular HGB Conc 32.1 g/dL (31.5-36.5); Mean Corpuscular Volume 92 fL (80-100); Mean Platelet Volume 9.8 fL (9.1-12.4); NEUTROPHILS ABSOLUTE AUTO 9.95 K/mm3 (1.96-9.15); NEUTROPHILS PERCENT AUTO 81 % (41-73); Platelet Count 210 K/mm3 (150-400); RDW Coefficient Variation 16.6 % (11.7-14.2); RDW Standard Deviation 55.3 fL (35.1-46.3); Red Blood Cell Count 2.88 M/mm3 (4.30-5.90); White Blood Cell Count 12.23 K/mm3 (4.00-11.30)
[2019-07-26 04:46] LABS: Bun/Creatinine Ratio 17.5 (12.0-20.0); Calcium, Blood 7.8 mg/dL (8.5-10.1); Creatinine, Blood 2.86 mg/dL (0.60-1.20); Potassium, Blood 4.5 mmol/L (3.5-5.5)
--- NOTE | 2019-07-26 05:22 | NUR ---
SHIFT SUMMARY PT A&O X4. VSS. MONITOR SHOWS PACING, HR 70's-80's. SPO2 > 92% ON 2L NC. PT BRIEFLY PLACED ON BIPAP X1 THIS SHIFT AFTER BECOMING SOB W/ AMBULATION TO BATHROOM AND STRUGGLING TO RECOVER W/ NC. PT BACK ON 2L NC. NO OTHER EVENTS OVER NIGHT. WILL CONTINUE TO MONITOR AND PROVIDE CARE UNTIL REPORT OFF TO DAY SHIFT RN.
[2019-07-26 05:33] LABS: Troponin I 2.76 ng/mL (0.000-0.040)
--- NOTE | 2019-07-26 08:33 | NUR ---
pt sitting up in the chair, a/ox3, pleasant and cooperative with care, reports he is feeling much better, had a bit of trouble breathing this am while in bed, but when he got up to chair that resolved, denies any complaints of pain, lungs are clear dim in bases, resp even and unlabored, is currently on 2 liters 02 via n/c, no cough noted or reported, hrr, tele in place running sr 100% paced, no edema noted, ppp+1, cap refill <3sec, vs stable, afebrile, iv site is clear and patent, btx4, he reports last bm yesterday, voids without diff, skin c/w/d, maew, one person assist, zachary, call light in reach.
--- NOTE | 2019-07-26 13:35 | NUR ---
PT DOING WELL, PRETTY INDEPENDENT TO BR, SBA, NO COMPLAINTS, STATES HE'S DOING WELL. CALL LIGHT IN REACH.
[2019-07-26 14:02] LABS: Stool Occult Blood Guaiac 1 Pos (Neg)
--- NOTE | 2019-07-26 17:48 | NUR ---
pt resting in bed, he sates he's bored, no acute changes, call light in reach.
[2019-07-27 03:47] LABS: BASOPHILS ABSOLUTE AUTO 0.02 K/mm3 (0.00-0.23); BASOPHILS PERCENT AUTO 0 % (0-2); EOSINOPHILS ABSOLUTE AUTO 0.04 K/mm3 (0.00-0.68); EOSINOPHILS PERCENT AUTO 1 % (0-6); Hematocrit 26.3 % (37.0-53.0); Hemoglobin 8.3 g/dL (13.5-17.5); IMMATURE GRAN ABSOLUTE AUTO 0.03 K/mm3 (0.00-0.10); IMMATURE GRAN PERCENT AUTO 0 % (0-1); LYMPHOCYTES ABSOLUTE AUTO 0.88 K/mm3 (0.84-5.20); LYMPHOCYTES PERCENT AUTO 10 % (21-46); MONOCYTES ABSOLUTE AUTO 1.04 K/mm3 (0.16-1.47); MONOCYTES PERCENT AUTO 12 % (4-13); Mean Corpuscular HGB 29.3 pg (26.0-34.0); Mean Corpuscular HGB Conc 31.6 g/dL (31.5-36.5); Mean Corpuscular Volume 93 fL (80-100); Mean Platelet Volume 9.5 fL (9.1-12.4); NEUTROPHILS ABSOLUTE AUTO 6.84 K/mm3 (1.96-9.15); NEUTROPHILS PERCENT AUTO 77 % (41-73); Platelet Count 221 K/mm3 (150-400); RDW Coefficient Variation 15.9 % (11.7-14.2); Red Blood Cell Count 2.83 M/mm3 (4.30-5.90); White Blood Cell Count 8.85 K/mm3 (4.00-11.30)
[2019-07-27 04:04] LABS: Bun/Creatinine Ratio 20.9 (12.0-20.0); Calcium, Blood 8.1 mg/dL (8.5-10.1); Creatinine, Blood 2.54 mg/dL (0.60-1.20); Potassium, Blood 4.3 mmol/L (3.5-5.5)
--- NOTE | 2019-07-27 05:34 | NUR ---
SHIFT SUMMARY PT A&O X4. BP LOW, OTHERWISE VSS. MONITOR SHOWS PACING, HR 70's-80's. SPO2 > 92% ON RA-3L NC. PT SATING 97-100% ON RA WHILE UP IN CHAIR. 1-3L NC REQUIRED WHILE LAYING IN BED. PT ENCOURAGED TO LAY PROPPED UP FOR ENHANCED BRERATHING WHILE IN BED. PT SLEEPING MUCH OF SHIFT. NO EVENTS OVER NIGHT. WILL CONTINUE TO MONITOR AND PROVIDE CARE UNTIL REPORT OFF TO DAY SHIFT RN.
--- NOTE | 2019-07-27 09:21 | NUR ---
PT LAYING IN BED AWAKE A/OX3, PLEASANT AND COOPERATIVE WITH CARE, FOLLOWS COMMANDS WELL, DENIES ANY PAIN, STATES HE'S FEELING GOOD, SATS ARE 100% ON 2 LITERS, TURNED HIM DOWN TO 1LITER, DOES BETTER SITTING UP, LUNGS ARE CLEAR DIM IN BASES, RESP EVEN AND UNLABORED, NO COUGH NOTED, HRR, TELE IN PLACE RUNNING SR 100% PACED RHYTHM, NO EDEMA NOTED, PPP+2, CAP REFILL <3SEC, VS STABLE, AFEBRILE, IV SITE IS CLEAR AND PATENT, BTX4, ABD FLAT SOFT NONTENDER, VOIDS WITHOUT DIFF, SKIN C/W/D, MAEW, ANDREI, CALL LIGHT IN REACH.
[2019-07-27 10:52] LABS: Bun/Creatinine Ratio 21.3 (12.0-20.0); Calcium, Blood 8.3 mg/dL (8.5-10.1); Creatinine, Blood 2.54 mg/dL (0.60-1.20); Potassium, Blood 4.5 mmol/L (3.5-5.5)
--- NOTE | 2019-07-27 16:34 | NUR ---
PT HAS HAD AN UNEVENTFUL DAY, NO COMPLAINTS, OR ACUTE CHANGES, REPORT TO RENAE HUDSON, CALL LIGHT IN REACH.
--- NOTE | 2019-07-27 18:53 | NUR ---
PATIENT RESTING IN BED PATIENT DENIES ANY NEEDS. RESTING IN BED WATCHING TV. PATIENT STATES HE IS DONE WITH DINNER AFTER BEING ASKED. NASAL CANNULA IN PLACE; RESP E/U AT REST. PATIENT REMAINS PACED WITH HR 80 PER BUN ICER WITH NO CARDIAC EVENTS NOTED. CALL LIGHT W/I REACH. WILL REPORT TO NOC SHIFT RN.
[2019-07-28 03:59] LABS: BASOPHILS ABSOLUTE AUTO 0.04 K/mm3 (0.00-0.23); BASOPHILS PERCENT AUTO 0 % (0-2); EOSINOPHILS ABSOLUTE AUTO 0.14 K/mm3 (0.00-0.68); EOSINOPHILS PERCENT AUTO 2 % (0-6); Hematocrit 28.3 % (37.0-53.0); Hemoglobin 8.9 g/dL (13.5-17.5); IMMATURE GRAN ABSOLUTE AUTO 0.04 K/mm3 (0.00-0.10); IMMATURE GRAN PERCENT AUTO 0 % (0-1); LYMPHOCYTES ABSOLUTE AUTO 0.92 K/mm3 (0.84-5.20); LYMPHOCYTES PERCENT AUTO 10 % (21-46); MONOCYTES ABSOLUTE AUTO 0.87 K/mm3 (0.16-1.47); MONOCYTES PERCENT AUTO 10 % (4-13); Mean Corpuscular HGB 29.4 pg (26.0-34.0); Mean Corpuscular HGB Conc 31.4 g/dL (31.5-36.5); Mean Corpuscular Volume 93 fL (80-100); Mean Platelet Volume 9.3 fL (9.1-12.4); NEUTROPHILS ABSOLUTE AUTO 7.09 K/mm3 (1.96-9.15); NEUTROPHILS PERCENT AUTO 78 % (41-73); Platelet Count 231 K/mm3 (150-400); RDW Coefficient Variation 15.5 % (11.7-14.2); RDW Standard Deviation 53.5 fL (35.1-46.3); Red Blood Cell Count 3.03 M/mm3 (4.30-5.90)
--- NOTE | 2019-07-28 07:09 | NUR ---
SHIFT SUMMARY PATIENT PLEASENT AND COOPERATIVE THROUGHOUT THE NIGHT. PATIENT DENIED PAIN MOST OF THE NIGHT. BUT PATIENT REPORTED THAT AT APPROX 0000 HE HAD SOME SLIGHT CHEST PAIN AFTER GETTING UP TO USE THE RESTROOM THAT RESOLVED AFTER A FEW MINUTES OF REST. SEVERAL HOURS LATER PATIENT COMPLAINED OF SLIGHT CHEST PAIN AGAIN AFTER MOVEMENT. PATIENT REPORTS THAT HE SOMETIMES GETS CHEST PAIN WHEN HIS HGB IS LOW, AM LABS DRAWN AT THAT TIME. AFTER RESULTS CAME BACK PATIENT APPEARED TO EASILY FALL ASLEEP. PATIENT CURRENTLY APPEARS TO BE ASLEEP. REPORT GIVEN TO ONCOMING RN.
[2019-07-28 11:42] LABS: Bun/Creatinine Ratio 23.8 (12.0-20.0); Calcium, Blood 8.4 mg/dL (8.5-10.1); Creatinine, Blood 2.44 mg/dL (0.60-1.20); Potassium, Blood 4.5 mmol/L (3.5-5.5)
--- NOTE | 2019-07-28 13:11 | NUR ---
TAVR PATIENT DOES REQUIRE TAVR - PER MD BEST AND RADHA - HOWEVER, DUE TO COVID RULE OUT AT THIS TIME (CURRENTLY PENDING 82 HOURS OF THIS AM WHEN VERIFIED WITH LAB) [facility] (SPOKE TO TOM - COORDINATOR AT [facility] 07/26 AT 1815) WILL NO RECIEVE PATIENT UNTIL COVID TEST IS COMPLETED AND NEGATIVE. PATIENTS ECHO HAS GONE FROM EF OF 50% TO EF OF 25%. PATIENTS VSS AND PATIENT DENIES CHEST PAIN WITH NITRO PATCH IN PLACE. THIS RN HAS MADE MD HENAO & RADHA AWARE OF SITUATION - OF NOW ALL AWAITING PENDING COVID TEST FOR PATIENT TO [facility] TRANSFER FOR TAVR.
--- NOTE | 2019-07-28 19:35 | NUR ---
PCU DAYSHIFT SUMMARY PATIENT ALERT AND ORIENTED X4. RESP E/U ON RA WHILE AWAKE. PATIENT DOES REQUIRE 1-2 NC. PATIENT INDPENEDENT UP TO BATHROOM. TOLERATES WELL. PATIENT TO BE COBRA TRANSFERED IF COVID 19 RESULT IS NEGATIVE PER MD ISTRATE. PATIENTS VSS. PATIENT REMAINS PACED A FLUTTER IN THE 80'S T/O SHIFT WITH NO EVENTS PER SCRIPT COORDINATOR. REPORT TO NOC SHIFT RN.
[2019-07-29 04:10] LABS: BASOPHILS ABSOLUTE AUTO 0.04 K/mm3 (0.00-0.23); BASOPHILS PERCENT AUTO 1 % (0-2); EOSINOPHILS ABSOLUTE AUTO 0.25 K/mm3 (0.00-0.68); EOSINOPHILS PERCENT AUTO 3 % (0-6); Hematocrit 26.9 % (37.0-53.0); Hemoglobin 8.2 g/dL (13.5-17.5); IMMATURE GRAN ABSOLUTE AUTO 0.02 K/mm3 (0.00-0.10); IMMATURE GRAN PERCENT AUTO 0 % (0-1); LYMPHOCYTES ABSOLUTE AUTO 1.15 K/mm3 (0.84-5.20); LYMPHOCYTES PERCENT AUTO 16 % (21-46); MONOCYTES ABSOLUTE AUTO 0.76 K/mm3 (0.16-1.47); MONOCYTES PERCENT AUTO 10 % (4-13); Mean Corpuscular HGB 28.8 pg (26.0-34.0); Mean Corpuscular HGB Conc 30.5 g/dL (31.5-36.5); Mean Corpuscular Volume 94 fL (80-100); Mean Platelet Volume 9.3 fL (9.1-12.4); NEUTROPHILS ABSOLUTE AUTO 5.14 K/mm3 (1.96-9.15); NEUTROPHILS PERCENT AUTO 70 % (41-73); Platelet Count 241 K/mm3 (150-400); RDW Coefficient Variation 15.3 % (11.7-14.2); RDW Standard Deviation 52.7 fL (35.1-46.3); Red Blood Cell Count 2.85 M/mm3 (4.30-5.90); White Blood Cell Count 7.36 K/mm3 (4.00-11.30)
--- NOTE | 2019-07-29 07:18 | NUR ---
SHIFT SUMMARY PATIENT PLEASENT AND COOPERATIVE THROUGHOUT THE NIGHT. PATIENT APPEARED TO SLEEP WELL LAST NIGHT WITH NO COMPLAINTS OF CHEST PAIN NOTED. PATIENT USED 1L PRN WHILE ASLEEP LAST NIGHT TO MAINTAIN O2 SATURATIONS. VITAL SIGNS CHARTED. REPORT GIVEN TO ONCOMING RN.
--- NOTE | 2019-07-29 18:34 | NUR ---
PCU DAYSHIFT SUMMARY PATIENT REMAINED ALERT AND ORIENTED X4. INDEPENDENT IN ROOM. RESP E/U ON ROOM AIR. PATIENT REMAINED PACED HEART RHYTHM IN THE 70'S WITH BBB NOTED - NO CARDIAC EVENTS NOTED PER X RAY TECHNOLOGIST. PATIENT SALINE LOCKED. NO ACUTE DISTRESS NOTED. PATIENT CALL APPROPRIATLY. WILL CONTINUE TO MONITOR AND REPORT TO NOC SHIFT RN.
--- NOTE | 2019-07-29 19:58 | NUR ---
REPORT RECEIVED FROM BECCA SONG. PT ALERT, ORIENTED X3, NO C/O PAIN. STATES HE DID GET SHORT OF BREATH AFTER COMING OUT OF BATHROOM. HRR, FAINT PEDAL PULSES. BILATERAL1+ LOWER EDEMA NOTED. LUNGS WITH FAINT FINE CRACKLES IN RIGHT LOWER BASE, STABLE OXYGEN SATURATION ON ROOM AIR. PT STATES SOB RESOLVED WITH REST. ABDOMEN ROUND, SOFT, NON TENDER, PT HAD SOFT LOOSE DARK STOOL. VOIDING WITHOUT COMPLICATIONS. MAEW, BED IN LOW POSITION, CALL TOM WITHIN REACH.
--- NOTE | 2019-07-30 05:02 | NUR ---
VSS, NO C/O PAIN. PT GETS DYSPNEIC WITH EXERTION, RECOVERS WITH REST. HEART RHYTHM 100% PACED, HR 70. PT IS ALERT, ABLE TO MAKE NEEDS KNOWN. MAEW. ORIENTED X3, LUNG SOUNDS DIMINISHED IN RLL WITH FAINT FINE CRACKLES, STABLE OXYGEN SATURATION ON ROOM AIR. ABDOMEN ROUND, SOFT, NON TENDER, PT HAVING SOFT DARK BROWN STOOLS. VOIDING WITHOUT COMPLICATIONS. IV W/O RST, FLUSHES WELL. BED IN LOW POSITION, CALL TOM WITHIN REACH.
[2019-07-30 05:12] LABS: Hematocrit 26.7 % (37.0-53.0); Hemoglobin 8.3 g/dL (13.5-17.5); Mean Corpuscular HGB Conc 31.1 g/dL (31.5-36.5); Mean Corpuscular Volume 93 fL (80-100); Mean Platelet Volume 9.4 fL (9.1-12.4); Platelet Count 254 K/mm3 (150-400); RDW Coefficient Variation 14.9 % (11.7-14.2); RDW Standard Deviation 51.4 fL (35.1-46.3); Red Blood Cell Count 2.86 M/mm3 (4.30-5.90); White Blood Cell Count 7.32 K/mm3 (4.00-11.30)
[2019-07-30 05:39] LABS: Bun/Creatinine Ratio 25.1 (12.0-20.0); Calcium, Blood 8.3 mg/dL (8.5-10.1); Creatinine, Blood 1.99 mg/dL (0.60-1.20); Potassium, Blood 4.5 mmol/L (3.5-5.5)
--- NOTE | 2019-07-30 19:39 | NUR ---
PCU DAYSHIFT SUMMARY PATIENT ALERT AND ORIENTED X4 T/O SHIFT. INDEPENDENT IN ROOM. PATIENT REMAINED PACED WITH BBB RATE 70'S. NO ACUTE EVENTS NOTED TODAY. PATIENT STILL AWAITING TAVR AND COVID R/O. CALL LIGHT W/I; REPORTED TO NOC SHIFT RN.
--- NOTE | 2019-07-30 19:41 | NUR ---
REPORT RECEIVED FROM BECCA SONG. PT IS AWAKE, ALERT,ORIENTED X4. NO C/O PAIN. HRR, 1+ BLE EDEMA. DENIES CHEST PAIN. LUNG SOUNDS DIMINISHED T BASES, STABLE OXYGEN SATURATION ON ROOM AIR. ABDOMEN ROUND, SOFT, NON TENDER WITH BOWEL TONES NOTED X4 QUADRANTS. DENIES NAUSEA, VOMITING OR DIARRHEA. VOIDING WITHOUT COMPLICATIONS. MAEW, SKIN INTACT. PT SITTING IN CHAIR, INDEPENDENT TO BATHROOM. CALL TOM WITHIN REACH.
--- NOTE | 2019-07-31 05:28 | NUR ---
VSS, NO C/O PAIN. TELEMETRY REMAINS 100% PACED, HR 70. LUNG SOUNDS CLEAR, DIMINISHED IN RLL. STABLE OXYGEN SATURATION ON ROOM AIR. DENIES SOB. ABDOMEN ROUND, SOFT, NON TENDER WITH BOWEL TONES NOTED X4 QUADRANTS. VOIDING WITHOUT DIFFICULTY. SKIN INTACT, IV IN LEFT FOREARM PATENT, W/O REDNESS, SWELLING OR TENDERNESS. BED IN LOW POSITION, CALL TOM WITHIN REACH.
[2019-07-31 08:51] LABS: Hematocrit 28.1 % (37.0-53.0); Hemoglobin 8.7 g/dL (13.5-17.5)
[2019-07-31 09:08] LABS: Bun/Creatinine Ratio 20.3 (12.0-20.0); Calcium, Blood 8.5 mg/dL (8.5-10.1); Creatinine, Blood 2.02 mg/dL (0.60-1.20); Potassium, Blood 4.8 mmol/L (3.5-5.5)
--- NOTE | 2019-07-31 17:03 | NUR ---
PCU DAYSHIFT SUMMARY PATIENT ALERT AND ORIENTED X4 T/O SHIFT. RESP E/U ON ROOM AIR. PATIENT PACED WITH BBB IN THE 70'S. STILL AWAITING COVID R/O SO HE CAN TRANSFER COBRA UP TO [facility] FOR TAVR. NO ACUTE DISTRESS. CALL LIGHT W/I REACH. WILL CONTINUE TO MONITOR AND REPORT TO NOC SHIFT RN.
--- NOTE | 2019-07-31 20:33 | NUR ---
REPORT RECEIVED FROM BECCA SONG. PT IS AWAKE, ALERT, ORIENTED X4. NO C/O PAIN, NO SHORTNESS OF BREATH. 2+ BILATERAL LOWER EXTREMITY EDEMA NOTED. LUNG SOUNDS DIMINISHED AT BASES, STABLE OXYGEN SATURATION ON ROOM AIR. ABDOMEN ROUND, SOFT, NON TENDER WITH BOWEL TONES NOTED. PT DENIES NAUSEA, VOMITING OR DIARRHEA. IV TO LEFT FOREARM PATENT, FLUSHES WELL. BED IN LOW POSITION, CALL TOM WITHIN REACH. PT INFORMED OF BLOOD TRANSFUSION PLANNED THIS SHIFT.
--- NOTE | 2019-08-01 00:31 | NUR ---
Pt blood completed, denies CP, SOB, Pain. States that he is feeling good. VSS. Call light in reach. Will continue to monitor.
[2019-08-01 03:47] LABS: Hematocrit 29.2 % (37.0-53.0); Hemoglobin 9.2 g/dL (13.5-17.5); Mean Corpuscular HGB 28.9 pg (26.0-34.0); Mean Corpuscular HGB Conc 31.5 g/dL (31.5-36.5); Mean Corpuscular Volume 92 fL (80-100); Mean Platelet Volume 9.2 fL (9.1-12.4); Platelet Count 252 K/mm3 (150-400); RDW Coefficient Variation 14.5 % (11.7-14.2); RDW Standard Deviation 48.4 fL (35.1-46.3); Red Blood Cell Count 3.18 M/mm3 (4.30-5.90); White Blood Cell Count 7.12 K/mm3 (4.00-11.30)
[2019-08-01 04:07] LABS: Bun/Creatinine Ratio 21.7 (12.0-20.0); Calcium, Blood 8.1 mg/dL (8.5-10.1); Creatinine, Blood 2.03 mg/dL (0.60-1.20); Potassium, Blood 4.4 mmol/L (3.5-5.5)
--- NOTE | 2019-08-01 04:56 | NUR ---
VSS, NO C/O CHEST PAIN. PT RECEIVED 1 UNIT PRBC WITHOUT COMPLICATIONS, HGB 9.2 THIS MORNING. IV SITE W/O RST. HR 100% PACED, 2+ BLE EDEMA NOTED AT BEGINNING OF SHIFT. PT RECEIVED LASIX 40MG IV X1 DOSE. PT VOIDING QS UO. NO GI DISTRESS NOTED. SKIN INTACT. BED IN LOW POSITION, CALL TOM WITHIN REACH.
--- NOTE | 2019-08-01 07:10 | NUR ---
ASSUMED PATIENT CARE. PATIENT RESTING COMFORTABLY IN BED, NO SIGNS OF ACUTE DISTRESS. WCTM.
--- NOTE | 2019-08-01 17:49 | NUR ---
NO ACUTE EVENTS THIS SHIFT. PATIENT REMAINED 100% PACED IN THE 70S-90S. PATIENT DENIED CHEST PAIN/PRESSURE THIS SHIFT. PLAN CONTINUES TO BE COBRA TO [facility] PENDING NEGATIVE COVID RESULT.
--- NOTE | 2019-08-01 23:10 | NUR ---
UPDATE NURSE PRACTIONER WINIFRED LEA NOTIFIED OF PATIENT'S COVID RESULTS BEING NEGATIVE PER LAB REPORT. WINIFRED STATED SHE WOULD INFORM THE DAY SHIFT HOSPITALIST TO SEE PATIENT FIRST IN THE MORNING.
--- NOTE | 2019-08-02 05:57 | NUR ---
SHIFT SUMMARY PATIENT PLEASENT AND COOPERATIVE THROUGHOUT THE NIGHT. NO COMPLAINTS OF PAIN OR DISDOMFORT NOTED THROUGHOUT THE NIGHT. PATIENT AWAKE AND UP IN THE CHAIR SEVERAL TIMES LAST NIGHT. HOWEVER, PATIENT DID APPEAR TO NAP ON AND OFF LAST NIGHT. WILL CONTINUE TO MONITOR PATIENT AND GIVE BEDSIDE REPORT TO ONCOMING RN.
--- NOTE | 2019-08-02 07:39 | NUR ---
ASSUMED PATIENT CARE. PATIENT SITTING COMFORTABLY, CONVERSING WITH NURSING STAFF. NO SIGNS OF ACUTE DISTRESS, WCTM.
[2019-08-02 08:22] LABS: Hematocrit 32.6 % (37.0-53.0)
--- NOTE | 2019-08-02 11:18 | NUR ---
REPORT GIVEN TO EMS, PATIENT TAKEN VIA GURNEY FOR TRANSPORT TO [facility] FOR TAVR TODAY. NO SIGNS OF ACUTE DISTRESS.
--- NOTE | 2019-08-02 11:27 | NUR ---
REPORT GIVEN TO BECCA BEYER AT [facility] AT [facility].
== END 2019-08-02 11:12 | disposition short-term general hospital (02) | DRG 871 ==
LOC: ER 23:11 → PCU 07-25 04:32
PROVIDERS: Emergency Medicine; Family Medicine; Internal Medicine; ADMIT Internal Medicine
PROC: 5A09357 Assistance with Respiratory Ventilation, Less than 24 Consecutive Hours, Continuous Positive Airway Pressure (ICD-10-PCS; 2019-07-25)
PROC: 30233N1 Transfusion of Nonautologous Red Blood Cells into Peripheral Vein, Percutaneous Approach (ICD-10-PCS; principal; 2019-07-31)
DX: A41.9 Sepsis, unspecified organism (principal); J18.9 Pneumonia, unspecified organism; J96.01 Acute respiratory failure with hypoxia; I50.33 Acute on chronic diastolic (congestive) heart failure; I21.4 Non-ST elevation (NSTEMI) myocardial infarction; I13.0 Hypertensive heart and chronic kidney disease with heart failure and stage 1 through stage 4 chronic kidney disease, or unspecified chronic kidney disease; N18.4 Chronic kidney disease, stage 4 (severe); E11.22 Type 2 diabetes mellitus with diabetic chronic kidney disease; I35.0 Nonrheumatic aortic (valve) stenosis; D50.9 Iron deficiency anemia, unspecified; I25.10 Atherosclerotic heart disease of native coronary artery without angina pectoris; K21.9 Gastro-esophageal reflux disease without esophagitis; Z95.0 Presence of cardiac pacemaker; Z85.46 Personal history of malignant neoplasm of prostate; Z87.891 Personal history of nicotine dependence; Z79.84 Long term (current) use of oral hypoglycemic drugs; Z79.02 Long term (current) use of antithrombotics/antiplatelets; Z79.82 Long term (current) use of aspirin; Z79.899 Other long term (current) drug therapy
CPT/HCPCS: 0099U; 36415; 36430; 36600; 71045; 71250; 74176; 80048; 80053; 82272; 82550; 82803; 82947; 83605; 83735; 83880; 84484; 85014; 85018; 85025; 85027; 86850; 86900; 86901; 86923; 87040; 93005; 93010; 93306; 94660; 94762; 96365; 96367; 99285-25; A9270-GY; J0456; J0692; J0696; J1650; J1940; J1956; J3370; J7050; P9016; U0002

== ENCOUNTER 2019-07-25 | Day surgery (SDC) | payer MEDICARE ==
[2019-07-25] MEDS ORDERED: FURO20 PO (04:58)
== END 2019-08-06 22:40 | disposition home or self-care (01) ==
LOC: ATC
DX: D50.9 Iron deficiency anemia, unspecified (principal); I10 Essential (primary) hypertension; E11.9 Type 2 diabetes mellitus without complications; E66.9 Obesity, unspecified; I35.9 Nonrheumatic aortic valve disorder, unspecified; K21.9 Gastro-esophageal reflux disease without esophagitis; E78.49 Other hyperlipidemia; C61 Malignant neoplasm of prostate; Z68.33 Body mass index [BMI] 33.0-33.9, adult; Z79.82 Long term (current) use of aspirin; Z79.84 Long term (current) use of oral hypoglycemic drugs; Z79.02 Long term (current) use of antithrombotics/antiplatelets; Z79.899 Other long term (current) drug therapy
CPT/HCPCS: 36415; 86850; 86900; 86901; 86923

== ENCOUNTER 2019-10-11 14:45 | Inpatient (IN) | payer MEDICARE ==
[~2019-10-11] VITALS: Ht 172.7 cm; Wt 94.4 kg
[2019-10-11 15:33] LABS: BASOPHILS ABSOLUTE AUTO 0.04 K/mm3 (0.00-0.23); BASOPHILS PERCENT AUTO 0 % (0-2); EOSINOPHILS ABSOLUTE AUTO 0.22 K/mm3 (0.00-0.68); EOSINOPHILS PERCENT AUTO 2 % (0-6); Hematocrit 28.3 % (37.0-53.0); Hemoglobin 8.3 g/dL (13.5-17.5); IMMATURE GRAN ABSOLUTE AUTO 0.07 K/mm3 (0.00-0.10); IMMATURE GRAN PERCENT AUTO 1 % (0-1); LYMPHOCYTES ABSOLUTE AUTO 1.57 K/mm3 (0.84-5.20); LYMPHOCYTES PERCENT AUTO 16 % (21-46); MONOCYTES ABSOLUTE AUTO 0.78 K/mm3 (0.16-1.47); MONOCYTES PERCENT AUTO 8 % (4-13); Mean Corpuscular HGB 26.2 pg (26.0-34.0); Mean Corpuscular HGB Conc 29.3 g/dL (31.5-36.5); Mean Corpuscular Volume 89 fL (80-100); Mean Platelet Volume 9.1 fL (9.1-12.4); NEUTROPHILS ABSOLUTE AUTO 7.47 K/mm3 (1.96-9.15); NEUTROPHILS PERCENT AUTO 74 % (41-73); Platelet Count 303 K/mm3 (150-400); RDW Coefficient Variation 15.9 % (11.7-14.2); Red Blood Cell Count 3.17 M/mm3 (4.30-5.90); White Blood Cell Count 10.15 K/mm3 (4.00-11.30)
[2019-10-11 15:55] LABS: Alanine Aminotransfer (ALT/SGP 16 U/L (12-78); Albumin, Blood 3.3 g/dL (3.4-5.0); Albumin/Globulin Ratio 0.6 (0.8-1.8); Alk Phos 114 U/L (50-136); Anion Gap 5 mmol/L (6-16); Aspartate Aminotrans (AST/SGOT 17 U/L (12-37); Bilirubin, Total 0.6 mg/dL (0.1-1.0); Blood Urea Nitrogen 39 mg/dL (8-24); Bun/Creatinine Ratio 18.1 (12.0-20.0); CO2, Blood 26 mmol/L (21-32); Calcium, Blood 8.1 mg/dL (8.5-10.1); Chloride, Blood 107 mmol/L (98-108); Creatinine, Blood 2.16 mg/dL (0.60-1.20); Globulin, Blood 5.3 g/dL (2.2-4.0); Glomerular Filtration Rate 31 (60-); Glucose, Blood 206 mg/dL (70-99); Potassium, Blood 4.8 mmol/L (3.5-5.5); Sodium, Blood 138 mmol/L (136-145); Total Protein, Blood 8.6 g/dL (6.4-8.2); Troponin I <0.015 ng/mL (0.000-0.040)
[2019-10-11] MEDS ORDERED: LISINOPRIL2.5 MG PO (16:22)
[2019-10-11] MEDS ORDERED: CARVEDILOL3.125 MG PO (16:22)
[2019-10-11] MEDS ORDERED: FUROSEMIDE40 MG PO (16:23)
[2019-10-11] MEDS ORDERED: Vitamin D2000 UNIT PO (16:43)
[2019-10-11] MEDS ORDERED: OMEP20ER PO (16:43)
[2019-10-11] MEDS ORDERED: VITAMIN B-121000 MCG PO (16:44)
[2019-10-11 17:49] LABS: Percent Saturation 7.7 % (20.0-50.0)
[2019-10-12 04:48] LABS: BASOPHILS ABSOLUTE AUTO 0.02 K/mm3 (0.00-0.23); BASOPHILS PERCENT AUTO 0 % (0-2); EOSINOPHILS ABSOLUTE AUTO 0.13 K/mm3 (0.00-0.68); EOSINOPHILS PERCENT AUTO 1 % (0-6); Hematocrit 25.5 % (37.0-53.0); Hemoglobin 7.6 g/dL (13.5-17.5); IMMATURE GRAN ABSOLUTE AUTO 0.05 K/mm3 (0.00-0.10); IMMATURE GRAN PERCENT AUTO 1 % (0-1); LYMPHOCYTES ABSOLUTE AUTO 1.28 K/mm3 (0.84-5.20); LYMPHOCYTES PERCENT AUTO 13 % (21-46); MONOCYTES ABSOLUTE AUTO 0.85 K/mm3 (0.16-1.47); MONOCYTES PERCENT AUTO 9 % (4-13); Mean Corpuscular HGB 26.9 pg (26.0-34.0); Mean Corpuscular HGB Conc 29.8 g/dL (31.5-36.5); Mean Corpuscular Volume 90 fL (80-100); Mean Platelet Volume 9.2 fL (9.1-12.4); NEUTROPHILS ABSOLUTE AUTO 7.35 K/mm3 (1.96-9.15); NEUTROPHILS PERCENT AUTO 76 % (41-73); Platelet Count 248 K/mm3 (150-400); Red Blood Cell Count 2.83 M/mm3 (4.30-5.90); White Blood Cell Count 9.68 K/mm3 (4.00-11.30)
[2019-10-12 05:10] LABS: Albumin, Blood 3.1 g/dL (3.4-5.0); Albumin/Globulin Ratio 0.6 (0.8-1.8); Bilirubin, Total 0.8 mg/dL (0.1-1.0); Bun/Creatinine Ratio 18.9 (12.0-20.0); Calcium, Blood 8.1 mg/dL (8.5-10.1); Creatinine, Blood 2.01 mg/dL (0.60-1.20); Globulin, Blood 5.1 g/dL (2.2-4.0); Potassium, Blood 4.5 mmol/L (3.5-5.5); Total Protein, Blood 8.2 g/dL (6.4-8.2)
--- NOTE | 2019-10-12 06:12 | NUR ---
PCU ADMIT / SHIFT SUMMARY PT REPORTED TO HAVE BEEN BROUGHT TO PCU-02 FROM ER BY MU @ [id number]. PT A&O X4. VSS. MONITOR SHOWS PACING, HR 60's-70's. LUNG SOUNDS W/ EXP WHEEZE. SPO2 > 92% ON 3L NC OR BIPAP 10/5, FIO2 25%. PT REPORTS RA @ BASELINE. PT SOB W/ EXERTION. EDEMA NOTED TO BLE. PT INDEPENDENT AT BASELINE, SBA FOR SAFETY AT THIS TIME. NO EVENTS OVER NIGHT. WILL CONTINUE TO MONITOR AND PROVIDE CARE UNTIL REPORT OFF TO DAY SHIFT RN.
--- NOTE | 2019-10-12 08:38 | NUR ---
Call to pharmacy to check on IV compatiability of ferrilicit and zosyn. Pharmacist verifies compatible.
--- NOTE | 2019-10-12 13:24 | NUR ---
LASIX TO BE ADMINISTERED AFTER BLOOD TRANSFUSION
[2019-10-12 16:56] LABS: Vancomycin, Random 10.8 ug/mL
--- NOTE | 2019-10-12 18:47 | NUR ---
REPORT TO HADLEY HUDSON ON MEDCIAL FLOOR. RN MADE AWARE THAT VANCOMYCIN HAS NOT BEEN GIVEN PT REQUIRES A POWERGLIDE IV ACCESS IS POOR. ZOSYN IS RUNNING TO IV IN RT HAND. PT A/O X4 ANSWERING QUESTIONS APPROPRIATELY. MEDICAL FLOOR RN HAS NOTED THAT PT WILL REQUIRE POWERGLIDE A RADIOLOGICAL EQUIPMENT SPECIALIST WAS NOT AVAILABLE AT THE TIME OF REPORT TO INSERT ONE.
[2019-10-13 04:53] LABS: BASOPHILS ABSOLUTE AUTO 0.05 K/mm3 (0.00-0.23); BASOPHILS PERCENT AUTO 1 % (0-2); EOSINOPHILS ABSOLUTE AUTO 0.23 K/mm3 (0.00-0.68); EOSINOPHILS PERCENT AUTO 2 % (0-6); Hematocrit 26.9 % (37.0-53.0); Hemoglobin 7.9 g/dL (13.5-17.5); IMMATURE GRAN ABSOLUTE AUTO 0.06 K/mm3 (0.00-0.10); IMMATURE GRAN PERCENT AUTO 1 % (0-1); LYMPHOCYTES ABSOLUTE AUTO 1.54 K/mm3 (0.84-5.20); LYMPHOCYTES PERCENT AUTO 15 % (21-46); MONOCYTES ABSOLUTE AUTO 0.99 K/mm3 (0.16-1.47); MONOCYTES PERCENT AUTO 10 % (4-13); Mean Corpuscular HGB 26.9 pg (26.0-34.0); Mean Corpuscular HGB Conc 29.4 g/dL (31.5-36.5); Mean Corpuscular Volume 92 fL (80-100); Mean Platelet Volume 9.4 fL (9.1-12.4); NEUTROPHILS ABSOLUTE AUTO 7.12 K/mm3 (1.96-9.15); NEUTROPHILS PERCENT AUTO 71 % (41-73); NRBC ABSOLUTE 0.02 K/mm3 (0.00-0.02); NRBC Auto 0.2 /100 WBC (0.0-0.2); Platelet Count 221 K/mm3 (150-400); RDW Coefficient Variation 15.9 % (11.7-14.2); RDW Standard Deviation 53.1 fL (35.1-46.3); Red Blood Cell Count 2.94 M/mm3 (4.30-5.90); White Blood Cell Count 9.99 K/mm3 (4.00-11.30)
[2019-10-13 05:10] LABS: Bun/Creatinine Ratio 18.1 (12.0-20.0); Creatinine, Blood 2.21 mg/dL (0.60-1.20); Potassium, Blood 4.5 mmol/L (3.5-5.5)
--- NOTE | 2019-10-13 05:37 | NUR ---
CUSTOM CAR BUILDER SUMMARY Patient slept on and off as he was up several times with soft to loose bowel movements. no black or bloody appearing stools. Patient states that when he took radiation for his prostate, it made him unable to always tell when he needs to go, and unable to hold it. HGB this morning is 7.9 which is a slight improvement from 7.6 yesterday. Bun and CR unchanged, and GFR decreased to 30.1
--- NOTE | 2019-10-13 18:39 | NUR ---
SHIFT SUMMARY PT UP TO BATHROOM WITH 1 PERSON ASSIST SEVERAL TIMES TODAY WITH LOOSE STOOL WHICH HE REPORTS HE HAS HAD TROUBLE WITH SINCE 2006 BUT CAN ANTICIPATE IT BETTER AT HOME THAN HERE. DOZING ON AND OFF TODAY. ATTEMPTING TO WEAN FROM O2. CHANGED FROM HIGH FLOW TUBING WHEN O2 WAS AT 2L/M TO REGULAR NC. HAS NEEDED 3L/M TO MAINTAIN IN 90'S AND DROPS WHEN ASLEEP. HAD CHEST PAIN THIS MORNING THAT WAS FOLLOWED UP WITH EKG AND TROPONIN. TYLENOL GIVEN AND PT FELL ASLEEP. WHEN HE GOT UP HE SAID IT WAS IMPROVED BUT REALLY DIDN'T GO AWAY TIL HE WAS UP IN A RECLINER CHAIR THIS AFTERNOON. PAIN SUBSIDED COMPLETELY AFTER THAT.
--- NOTE | 2019-10-13 19:39 | NUR ---
Patient continuing to have very frequent loose stools. (Baseline since patient had radiation for prostate CA in 2006.) Will be calling hospitalist to request something to lessen his loose stooling this evening so that he may rest better tonight.
--- NOTE | 2019-10-14 01:27 | NUR ---
After multiple adjustments to straps on CPAP, Patient stated he did not want to wear it any more. This was removed and replaced with Nasal Cannula at 3.5 liters. Continuous oxymetry still in place, and patient informed that if alarms begin going off, We could call RT to assess the situation. Patient currently satting betw. 89% and 94%. Will continue monitoring.
--- NOTE | 2019-10-14 02:49 | NUR ---
Spoke with RT about patient's wish to have no more CPAP due to his claustrophobia and discomfort with the mask. They Came and talked with Patient, and refit the mask and the patient decided he would continue to wear it overnight. will continue monitoring. No diarrhea since initial dose of immodium arount 2300. C Diff test came back negative.
[2019-10-14 04:45] LABS: BASOPHILS ABSOLUTE AUTO 0.04 K/mm3 (0.00-0.23); BASOPHILS PERCENT AUTO 1 % (0-2); EOSINOPHILS ABSOLUTE AUTO 0.31 K/mm3 (0.00-0.68); EOSINOPHILS PERCENT AUTO 4 % (0-6); Hematocrit 23.6 % (37.0-53.0); Hemoglobin 7.1 g/dL (13.5-17.5); IMMATURE GRAN ABSOLUTE AUTO 0.06 K/mm3 (0.00-0.10); IMMATURE GRAN PERCENT AUTO 1 % (0-1); LYMPHOCYTES ABSOLUTE AUTO 1.52 K/mm3 (0.84-5.20); LYMPHOCYTES PERCENT AUTO 19 % (21-46); MONOCYTES ABSOLUTE AUTO 0.83 K/mm3 (0.16-1.47); MONOCYTES PERCENT AUTO 10 % (4-13); Mean Corpuscular HGB 26.7 pg (26.0-34.0); Mean Corpuscular HGB Conc 30.1 g/dL (31.5-36.5); Mean Platelet Volume 9.4 fL (9.1-12.4); NEUTROPHILS PERCENT AUTO 66 % (41-73); Platelet Count 218 K/mm3 (150-400); RDW Coefficient Variation 16.3 % (11.7-14.2); RDW Standard Deviation 52.4 fL (35.1-46.3); Red Blood Cell Count 2.66 M/mm3 (4.30-5.90); White Blood Cell Count 8.16 K/mm3 (4.00-11.30)
[2019-10-14 04:46] LABS: Mean Corpuscular Volume 89 fL (80-100)
[2019-10-14 05:06] LABS: Albumin, Blood 2.7 g/dL (3.4-5.0); Albumin/Globulin Ratio 0.6 (0.8-1.8); Bilirubin, Total 0.7 mg/dL (0.1-1.0); Bun/Creatinine Ratio 17.4 (12.0-20.0); Calcium, Blood 8.1 mg/dL (8.5-10.1); Creatinine, Blood 2.41 mg/dL (0.60-1.20); Globulin, Blood 4.3 g/dL (2.2-4.0); Potassium, Blood 4.1 mmol/L (3.5-5.5)
--- NOTE | 2019-10-14 06:34 | NUR ---
CLOTH PACKER SUMMARY Stool for Cdiff sent per protocol returned negative result. Patient has had no further loose stools since first dose 4mg of Lomotil. No complaints of chest pain or pressure overnight. Patient did remain on CPAP after visit from Respiratory Therapy. (See nurses notes).
--- NOTE | 2019-10-14 19:38 | NUR ---
SHIFT SUMMARY PT AXO, PLEASANT AND COOPERATIVE WITH CARE. UP WITH SBA TO BATHROOM. PT CONTINUES TO HAVE DIARRHEA THROUGHOUT THE SHIFT, AT BASELINE. PT DENIES PAIN AND NV. IV PATENT AND INFUSING PER EMAR. PT HAD 1 UNIT PRBC PER ORDERS. TOLERATED WELL. CRACKLES NOTED PRIOR TO BLOOD ADMINISTRATION, THIS NURSE MONITORED CLOSELY, SEE VSTosha VALDES, RT ALSO IN TO ASSESS PT DURING TRANSFUSION. VSS. PT UP TO CHAIR THROUGHOUT THE DAY. BED IN LOW POSITION, CALL LIGHT WITHIN REACH.
--- NOTE | 2019-10-15 05:08 | NUR ---
SUMMARY: PT IS A/O, CALLS APPROPRIATELY AND SPECIFIES NEEDS. HE IS UP W/1 ASSIST TO TOILET TO ASSIST W/LINES BUT WAS ABLE TO T/F SELF TO BSC SAFELY. HIS LS WERE DIM T/O AND DIURESIS SEEMS TO BE EFFECTIVE NO CRACKLES WERE HEARD THIS SHIFT. SPO2 REMAINED WNL AND HE TOLERATED 4L HUMIDIFIED O2 W/CONT BIOX INTACT WHEN AWAKE BUT WAS PLACED ON CPAP W/2L O2 BLEED IN WHILE SLEEPING. HE IS PACED AT 70'S BPM PER TELEMTRY. PT HAD SOFT BM'S THIS SHIFT AND ADMITS TO CHRONIC DIARRHEA POST COLON REMOVAL SO REFUSED BOWEL MEDS OR NEED FOR IMMODIUM. IVF ARE AT [facility] D/T DIFFICULT IV START AND REQUIRING FREQ IV INFUSIONS. AM LABS PENDING. NO ACUTE CHANGES, VSS/AFEBRILE. WCTM AND REPORT TO DAY RN.
[2019-10-15 05:11] LABS: BASOPHILS ABSOLUTE AUTO 0.04 K/mm3 (0.00-0.23); BASOPHILS PERCENT AUTO 1 % (0-2); EOSINOPHILS ABSOLUTE AUTO 0.38 K/mm3 (0.00-0.68); EOSINOPHILS PERCENT AUTO 5 % (0-6); Hematocrit 25.5 % (37.0-53.0); Hemoglobin 7.7 g/dL (13.5-17.5); IMMATURE GRAN ABSOLUTE AUTO 0.06 K/mm3 (0.00-0.10); IMMATURE GRAN PERCENT AUTO 1 % (0-1); LYMPHOCYTES ABSOLUTE AUTO 1.19 K/mm3 (0.84-5.20); LYMPHOCYTES PERCENT AUTO 17 % (21-46); MONOCYTES PERCENT AUTO 11 % (4-13); Mean Corpuscular HGB 26.6 pg (26.0-34.0); Mean Corpuscular HGB Conc 30.2 g/dL (31.5-36.5); Mean Corpuscular Volume 88 fL (80-100); Mean Platelet Volume 9.2 fL (9.1-12.4); NEUTROPHILS ABSOLUTE AUTO 4.72 K/mm3 (1.96-9.15); NEUTROPHILS PERCENT AUTO 66 % (41-73); Platelet Count 227 K/mm3 (150-400); RDW Coefficient Variation 16.6 % (11.7-14.2); RDW Standard Deviation 52.3 fL (35.1-46.3); White Blood Cell Count 7.19 K/mm3 (4.00-11.30)
--- NOTE | 2019-10-15 05:19 | NUR ---
H&H IMPROVED THIS AM, NOW 7.7/25.5. IT WAS 7.1/23.6 PRIOR TO BLOOD TRANSFUSION RECIEVED ON DAY SHIFT.
[2019-10-15 05:33] LABS: Calcium, Blood 8.1 mg/dL (8.5-10.1); Creatinine, Blood 2.3 mg/dL (0.60-1.20); Potassium, Blood 3.9 mmol/L (3.5-5.5)
--- NOTE | 2019-10-15 16:33 | NUR ---
Pt sitting in recliner chair and denies pain at this time. Pt denies nausea and dyspnea at this time. Engaged in therapeutic discussion regarding advanced care planning. Pt reports living at home with his . Pt has adult children but all live out of town or out of state. Discussed the importance of routine conversations with PCP and specialists regarding his disease process and developing multiple plans for the future. Educated on disease process including trajectory of disease process. Offered therapeutic listening as Pt discusses events regarding his health over the last several years. At this time Pt reports needing to use the restroom and denies need for assistance. Pt expresses appreciation of visit with no other concerns at this time. Spoke with Bedside RN Cristal and discussed case. Palliative Care will remain available.
--- NOTE | 2019-10-15 17:25 | NUR ---
EVENING NOTE PT UP IN CHAIR AT BEDSIDE. SR WITH BBB. VSS. UP FREQUENTLY TO VOID R/T LASIX TX. VSS. EDEMA MILDLY IMPROVED. PT DENIED CHEST PAIN OR SOB WITH ACTIVITY. CONTINUE ING TO REQUIRE OXYGEN. HOME O2 LEVEL RA. CONTINUE POT.
[2019-10-16 05:26] LABS: BASOPHILS ABSOLUTE AUTO 0.06 K/mm3 (0.00-0.23); BASOPHILS PERCENT AUTO 1 % (0-2); EOSINOPHILS ABSOLUTE AUTO 0.39 K/mm3 (0.00-0.68); EOSINOPHILS PERCENT AUTO 5 % (0-6); Hematocrit 27.7 % (37.0-53.0); Hemoglobin 8.4 g/dL (13.5-17.5); IMMATURE GRAN ABSOLUTE AUTO 0.05 K/mm3 (0.00-0.10); IMMATURE GRAN PERCENT AUTO 1 % (0-1); LYMPHOCYTES ABSOLUTE AUTO 1.26 K/mm3 (0.84-5.20); LYMPHOCYTES PERCENT AUTO 16 % (21-46); MONOCYTES ABSOLUTE AUTO 0.78 K/mm3 (0.16-1.47); MONOCYTES PERCENT AUTO 10 % (4-13); Mean Corpuscular HGB 27.1 pg (26.0-34.0); Mean Corpuscular HGB Conc 30.3 g/dL (31.5-36.5); Mean Corpuscular Volume 89 fL (80-100); Mean Platelet Volume 9.2 fL (9.1-12.4); NEUTROPHILS PERCENT AUTO 68 % (41-73); Platelet Count 247 K/mm3 (150-400); RDW Coefficient Variation 17.2 % (11.7-14.2); RDW Standard Deviation 52.7 fL (35.1-46.3); White Blood Cell Count 7.94 K/mm3 (4.00-11.30)
[2019-10-16 05:40] LABS: Bun/Creatinine Ratio 15.3 (12.0-20.0); Calcium, Blood 8.2 mg/dL (8.5-10.1); Creatinine, Blood 2.22 mg/dL (0.60-1.20); Potassium, Blood 3.5 mmol/L (3.5-5.5)
--- NOTE | 2019-10-16 07:42 | NUR ---
10/16/19 0610 PT UP TO THE BATHROOM FOR VOIDINGS AND A COUPLE OF LOOSE STOOLD "CHRONIC" PER PT. DENIES ANY DISCOMFORT AND SLEPT ON AND OFF DUE TO BR ISSUES. VITALS STABLE. HEART MONITOR STABLE AT "PACED RHYTHM". O2 AT 4LPM VIA N/C LAST NIGHT.
[2019-10-16] MEDS ORDERED: SPIR25 PO (13:47)
[2019-10-16] MEDS ORDERED: HIGH POTENCY P1 EAC1 PO (13:48)
--- NOTE | 2019-10-16 14:59 | NUR ---
DISCHARGE DISCHARGE INSTRUCTIONS, MEDICATION LIST AND FOLLOW UP APPOINTENTS REVIEWED WITH PT. QUESTIONS/CONCERNS ANSWERED. CARDIAC REHAB ORDERED, THEY WILL CONTACT THE PT WITH AN APPOINTMENT TIME. PT VERBALLY INDICATED UNDERSTANDING OF ALL NSTRUCTIONS RECEIVED. PT IS WAITING FOR HIS RIDE TO ARRIVE AT THIS TIME.
== END 2019-10-16 15:05 | disposition home or self-care (01) | DRG 291 ==
LOC: ER 14:45 → PCU 17:00 → MEDS 10-12 19:46
PROVIDERS: Pharmacist; Physician Assistant; ADMIT Internal Medicine
PROC: 5A09357 Assistance with Respiratory Ventilation, Less than 24 Consecutive Hours, Continuous Positive Airway Pressure (ICD-10-PCS; principal; 2019-10-11)
PROC: 30233N1 Transfusion of Nonautologous Red Blood Cells into Peripheral Vein, Percutaneous Approach (ICD-10-PCS; 2019-10-11)
DX: I13.0 Hypertensive heart and chronic kidney disease with heart failure and stage 1 through stage 4 chronic kidney disease, or unspecified chronic kidney disease (principal); J96.01 Acute respiratory failure with hypoxia; I50.21 Acute systolic (congestive) heart failure; N18.4 Chronic kidney disease, stage 4 (severe); I44.2 Atrioventricular block, complete; Z79.82 Long term (current) use of aspirin; Z79.84 Long term (current) use of oral hypoglycemic drugs; Z87.891 Personal history of nicotine dependence; Z95.3 Presence of xenogenic heart valve; Z95.0 Presence of cardiac pacemaker; E11.22 Type 2 diabetes mellitus with diabetic chronic kidney disease; D50.9 Iron deficiency anemia, unspecified; I25.2 Old myocardial infarction; I08.3 Combined rheumatic disorders of mitral, aortic and tricuspid valves; I27.20 Pulmonary hypertension, unspecified; Z95.5 Presence of coronary angioplasty implant and graft; I25.10 Atherosclerotic heart disease of native coronary artery without angina pectoris
CPT/HCPCS: 36415; 71045; 71046; 80048; 80053; 80202; 82728; 82947; 83540; 83550; 83605; 83735; 83880; 84484; 85025; 86850; 86900; 86901; 86923; 87040; 87493; 93005; 93010; 94660; 94762; 97110; 97116; 97161; 97165; 97530; 99285-25; A9270; A9270-GY; J1650; J1940; J2543; J2916; J3370; J7050; P9016; U0002

== ENCOUNTER 2021-04-20 08:17 | Emergency (ER) | payer MEDICARE ==
[~2021-04-20] VITALS: Ht 172.7 cm; Wt 95.2 kg
[~2021-04-20 08:17] MED LIST changes: +CARVEDILOL3.125 MG PO; +FUROSEMIDE40 MG PO; +HIGH POTENCY P1 EAC1 PO; +LISINOPRIL2.5 MG PO; +OMEP20ER PO; +SPIR25 PO; +VITAMIN B-121000 MCG PO; +Vitamin D2000 UNIT PO
[2021-04-20] MEDS ORDERED: FURO40 PO (08:53)
[2021-04-20] MEDS ORDERED: POTCHL20ER PO (08:53)
[2021-04-20] MEDS ORDERED: GLIM4 PO (08:53)
[2021-04-20] MEDS ORDERED: RANOLAZINE ER500 M2 PO (08:55)
[2021-04-20] MEDS ORDERED: Norco 5-325 Ta1 EACH PO (10:11)
== END 2021-04-20 10:29 | disposition home or self-care (01) ==
LOC: ER 08:17
DX: R07.81 Pleurodynia (principal); E11.9 Type 2 diabetes mellitus without complications; I10 Essential (primary) hypertension; Z87.891 Personal history of nicotine dependence; W01.0XXA Fall on same level from slipping, tripping and stumbling without subsequent striking against object, initial encounter
CPT/HCPCS: 71101; 99283-25; A9270

== ENCOUNTER 2023-01-23 12:11 | Inpatient (IN) | payer MEDICARE ==
[2023-01-23] VITALS (45 sets, daily range): BP systolic 77–138; BP diastolic 44–69
[~2023-01-23] VITALS: Ht 177.8 cm; Wt 94.1 kg
[~2023-01-23 12:11] MED LIST changes: +B-12500 MC2 PO; +FURO40 PO; +Norco 5-325 Ta1 EACH PO; +POTA10T PO; +RANOLAZINE ER500 M2 PO; +THERA-D2000 UNIT PO; -VITAMIN B-121000 MCG PO; -Vitamin D2000 UNIT PO
[2023-01-23 12:31] LABS: Base Excess Venous -4.1 mmol/L; Bicarbonate Venous 21.4 mmol/L (24.0-30.0); PCO2 Venous 38.1 mmHg (38-42); pH Blood Venous 7.36 (7.34-7.37)
[2023-01-23 12:34] LABS: BASOPHILS ABSOLUTE AUTO 0.01 K/mm3 (0.00-0.23); BASOPHILS PERCENT AUTO 0 % (0-2); EOSINOPHILS PERCENT AUTO 0 % (0-6); Hematocrit 33.6 % (37.0-53.0); Hemoglobin 10.5 g/dL (13.5-17.5); IMMATURE GRAN ABSOLUTE AUTO 0.06 K/mm3 (0.00-0.10); IMMATURE GRAN PERCENT AUTO 1 % (0-1); LYMPHOCYTES ABSOLUTE AUTO 1.39 K/mm3 (0.84-5.20); LYMPHOCYTES PERCENT AUTO 11 % (21-46); MONOCYTES ABSOLUTE AUTO 1.13 K/mm3 (0.16-1.47); MONOCYTES PERCENT AUTO 9 % (4-13); Mean Corpuscular HGB Conc 31.3 g/dL (31.5-36.5); Mean Corpuscular Volume 93 fL (80-100); Mean Platelet Volume 9.4 fL (9.1-12.4); NEUTROPHILS ABSOLUTE AUTO 10.55 K/mm3 (1.96-9.15); NEUTROPHILS PERCENT AUTO 80 % (41-73); Platelet Count 172 K/mm3 (150-400); RDW Coefficient Variation 14.9 % (11.7-14.2); RDW Standard Deviation 51.1 fL (35.1-46.3); Red Blood Cell Count 3.62 M/mm3 (4.30-5.90); White Blood Cell Count 13.14 K/mm3 (4.00-11.30)
[2023-01-23 12:35] LABS: Calcium, Ionized (POC) 0.98 mmol/L (1.10-1.46); Chloride (POC) 112 mmol/L (98-108); Creatinine (POC) 4.4 mg/dL (0.8-1.3); Glucose (ISTAT POC) 135 mg/dL (70-99); Hemoglobin (POC) 11.6 g/dL (13.5-17.5); Potassium (POC) 3.7 mmol/L (3.5-5.5); Sodium (POC) 146 mmol/L (135-148); Total CO2 (POC) 20 mmol/L (21-32)
[2023-01-23 12:55] LABS: Albumin, Blood 3.2 g/dL (3.4-5.0); Albumin/Globulin Ratio 0.6 (0.8-1.8); Bilirubin, Total 0.4 mg/dL (0.1-1.0); Bun/Creatinine Ratio 13.7 (12.0-20.0); Calcium, Blood 7.7 mg/dL (8.5-10.1); Creatinine, Blood 3.71 mg/dL (0.60-1.20); Globulin, Blood 5.2 g/dL (2.2-4.0); Potassium, Blood 3.7 mmol/L (3.5-5.5); Total Protein, Blood 8.4 g/dL (6.4-8.2)
[2023-01-23 13:54] LABS: Source, Urine Straight Cath
[2023-01-23 14:01] LABS: Appearance, Urine Clear (Clear); Bilirubin, Urine Neg (Neg); Blood, Urine 3+ (Neg); Color, Urine Yellow (P-Yellow); Glucose Qualitative, Urine Neg (Neg); Ketones, Urine Neg (Neg); Leukocyte Esterase, Urine Neg (Neg); Nitrite, Urine Neg (Neg); Protein, Urine 4+ (Neg); Urobilinogen, Urine NORM (Normal)
[2023-01-23 14:10] LABS: Amorphous Light (0-Heavy); Bacteria Not Seen /hpf; Hyaline Casts 0-2 /lpf (0-2); Red Blood Cells, Urine 0-2 /hpf (0-2); Squamous Epithelial Cells Rare /hpf (Few); White Blood Cells, Urine 0-2 /hpf (0-5)
[2023-01-23 14:11] LABS: U Amphetamine Screen Not Detected; U Barbituate Screen Not Detected; U Benzodiazapine Screen Not Detected; U Buprenorphine Screen Not Detected; U Cannabinoids Screen Not Detected; U Cocaine Screen Not Detected; U Methadone Screen Not Detected; U Methamphetamine Screen Not Detected; U Opiates Screen Not Detected; U Oxycodone Screen Not Detected; U Phencyclidine Screen Not Detected; U Propoxyphene Screen Not Detected
--- NOTE | 2023-01-23 15:02 | NUR ---
ARRIVAL TO ICU PT RECEIVING PROPOFOL 8MCG/KG/MIN AND FENTANYL 50MCG/HR. HE IS INTUBATED WITH VENT SETTINGS AC/VC 16/450/5/40%. HE OPENS EYES SPONTANEOUSLY, DOES NOT TRACK MOVEMENTS OR FOLLOW COMMANDS. WEAK COUGH/GAG REFLEX. LIMBS WITHDRAW FROM PAINFUL STIMULI. HE IS HYPOTENSIVE WITH MAP MID-50S. LR BOLUS GIVEN. PLAN FOR CENTRAL LINE PLACEMENT. BASS PATENT AND DRAINING YELLOW URINE TO GRAVITY. DINA AT BEDSIDE, PROVIDES HEALTH HISTORY TO BEST OF HER ABILITY. BLOOD CULTURES DRAWN. ORDER RECEIVED FOR HEPARIN GTT.
[2023-01-23 15:33] LABS: Base Excess Venous -2.4 mmol/L; Bicarbonate Venous 22.7 mmol/L (24.0-30.0); PCO2 Venous 35.8 mmHg (38-42)
[2023-01-23 15:55] LABS: Acinetobacter baumannii DNA Not Detected copy/mL (NOT DETECT); Adenovirus DNA Not Detected (NOT DETECT); Chlamydia pneumonia Not Detected (NOT DETECT); Enterobacter cloacae DNA Not Detected copy/mL (NOT DETECT); Escherichia coli DNA Not Detected copy/mL (NOT DETECT); Haemophilus influenzae DNA Not Detected copy/mL (NOT DETECT); Human Coronavirus RNA Not Detected (NOT DETECT); Human Metapneumovirus RNA Not Detected (NOT DETECT); Influenza virus A RNA Not Detected (NOT DETECT); Influenza virus B RNA Not Detected (NOT DETECT); Klebsiella aerogenes DNA Not Detected copy/mL (NOT DETECT); Klebsiella oxytoca DNA Not Detected copy/mL (NOT DETECT); Klebsiella pneumoniae DNA Not Detected copy/mL (NOT DETECT); Legionella pneumophila Not Detected (NOT DETECT); Moraxella catarrhalis DNA Not Detected copy/mL (NOT DETECT); Mycoplasma pneumoniae Not Detected (NOT DETECT); Parainfluenza virus RNA Not Detected (NOT DETECT); Proteus sp DNA Not Detected copy/mL (NOT DETECT); Pseudomonas aeruginosa DNA Not Detected copy/mL (NOT DETECT); Respiratory syncytial Vir RNA Not Detected (NOT DETECT); Rhinovirus+Enterovirus RNA Not Detected (NOT DETECT); Serratia marcescens DNA Not Detected copy/mL (NOT DETECT); Staphylococcus aureus DNA Not Detected copy/mL (NOT DETECT); Streptococcus agalactiae DNA Not Detected copy/mL (NOT DETECT); Streptococcus pneumoniae DNA Not Detected copy/mL (NOT DETECT); Streptococcus pyogenes DNA Not Detected copy/mL (NOT DETECT)
[2023-01-23 15:56] LABS: Anti-Xa UFH, PHA Monitoring <0.10 IU/mL; International Normalized Ratio 1.09; Prothrombin Time Results 11.4 Sec (9.7-11.5)
--- NOTE | 2023-01-23 16:27 | NUR ---
CODE STATUS DINA STS PT DOES NOT HAVE A POLST OR ADVANCED DIRECTIVE. SHE STS HE HAS TOLD HER MANY TIMES THAT "HE DOESN'T WANT TO BE HOOKED UP TO A BUNCH OF MACHINES". EXPLAINED FULL CODE VERSUS DNR. SHE STS "I DON'T KNOW IF HE WOULD LIKE ALL OF THIS BUT I'M NOT READY TO LET HIM GO YET". FULL CODE AT THIS TIME.
[2023-01-23 16:28] LABS: Adenovirus F 40/41 Not Detected (NOT DETECT); Astrovirus Not Detected (NOT DETECT); Campylobacter Sp Not Detected (NOT DETECT); Cryptosporidium Not Detected (NOT DETECT); Cyclospora Cayetanensis Not Detected (NOT DETECT); E. Coli O157 Not Detected (NOT DETECT); Entamoeba Histolytica Not Detected (NOT DETECT); Enteroaggregative E. coli-EAEC Not Detected (NOT DETECT); Enteropathogenic E. coli-EPEC Not Detected (NOT DETECT); Enterotoxigenic E. coli-ETEC Not Detected (NOT DETECT); Giardia Lamblia Not Detected (NOT DETECT); Norovirus GI/GII Not Detected (NOT DETECT); Plesiomonas Shigelloides Not Detected (NOT DETECT); Rotavirus A Not Detected (NOT DETECT); Salmonella Sp Not Detected (NOT DETECT); Sapovirus Not Detected (NOT DETECT); Shiga Toxin-prod E. coli-STEC Not Detected (NOT DETECT); Shigella/Enteroin E. coli-EIEC Not Detected (NOT DETECT); Vibrio Cholerae Not Detected (NOT DETECT); Vibrio Sp Not Detected (NOT DETECT); Yersinia Enterocolitica Not Detected (NOT DETECT)
--- NOTE | 2023-01-23 17:14 | NUR ---
HEPARIN HEPARIN GTT NOT STARTED IN ANTICIPATION FOR CENTRAL LINE PLACEMENT. BP IMPROVING, HOLDING OFF ON CENTRAL LINE PLACEMENT AT THIS TIME. DR SHAFFER AT BEDSIDE FOR EVAL. VERBAL ORDERS TO NOT GIVE HEPARIN BOLUS AND DO NOT START HEPARIN GTT.
--- NOTE | 2023-01-23 17:27 | NUR ---
PROVIDER UPDATE: Dr Hong notified of POC blood sugar of 16. See new orders.
[2023-01-23 18:12] LABS: SARS-Cov-2 (COVID-19) PCR, MMC POSITIVE (NEGATIVE)
--- NOTE | 2023-01-23 19:32 | NUR ---
SHIFT SUMMARY PT REMAINS OFF OF SEDATION. HE IS RECEIVING D5 100ML/HR DUE TO HYPOGLYCEMIA. PT OPENS EYES SPONTANEOUSLY BUT DOES NOT TRACK MOVEMENTS. COUGH/GAG INTACT. NO PURPOSEFUL MOVEMENTS WITH EXTREMITIES BUT DOES WITHDRAW FROM PAINFUL STIMULI. OGT CLAMPED. ATTENDS IN PLACE, NO BM SINCE ARRIVAL TO ICU. BASS PATENT AND DRAINING TO GRAVITY. BP IMPROVED, NO CENTRAL LINE. POWERGLIDE PLACED. PT IS POSITIVE FOR C-DIFF AND COVID. DINA AT BEDSIDE. SHE HAS BECOME MORE CONFUSED AND REPETITIVE. SHE BEGAN WANDERING AND INCONTINENT OF STOOL. REFERRED TO ED FOR EVAL.
--- NOTE | 2023-01-23 20:55 | NUR ---
PATIENT INTUBATED, OPENS EYES TO SLIGHT STIMULI, ABLE TO MOVE BOTH FEET TO DIRECTION AND SQUEEZE WITH BOTH HANDS TO DIRECTION. PROPOFOL RESTARTED AT 10 MCG TO HELP PATIENT KRISTOPHER BEING INTUBATED. ETT IN PLACE WITH VENT SET AT AC/VC 16, TV 450, PEEP 5, FIO2 40%. SUCTIONING THICK BEAL WITH BRIGHT RED SPUTUM, SPECIMEN SENT TO LAB. LUNGS REMAINING COARSE T/O AFTER SUCTIONING. DOCTOR EROS GIVEN UPDATE AND AWARE OF CONTINUED LOW GLUCOSE LEVELS. OG REMAINS IN PLACE FOR MEDICATIONS AND CLAMPED. ATTENDS REMAIN IN PLACE. MONITOR SHOWING PACED RHYTHM.
--- NOTE | 2023-01-23 22:17 | NUR ---
DOCTOR VALERIE GIVEN UPDATE. CHANGED TO PCU STATUS, CONTINUE TO MONITOR FOR REACTION TO ASPIRIN
--- NOTE | 2023-01-23 23:16 | NUR ---
DOCTOR EROS CALLED TO CLARIFY HEPARIN SQ ORDER DUE TO BLOODY SPUTUM VIA ETT. PLAN TO HOLD MIDNIGHT DOSE OF HEPARIN, AND START IN AM.
[2023-01-24] VITALS (48 sets, daily range): BP systolic 95–139; BP diastolic 51–87
[2023-01-24 04:13] LABS: PO2 Arterial 120 mmHg (80-100); pH Blood Arterial 7.37 (7.35-7.45)
[2023-01-24 04:21] LABS: BASOPHILS ABSOLUTE AUTO 0.01 K/mm3 (0.00-0.23); BASOPHILS PERCENT AUTO 0 % (0-2); EOSINOPHILS PERCENT AUTO 0 % (0-6); Hematocrit 27.5 % (37.0-53.0); Hemoglobin 8.8 g/dL (13.5-17.5); IMMATURE GRAN ABSOLUTE AUTO 0.05 K/mm3 (0.00-0.10); IMMATURE GRAN PERCENT AUTO 1 % (0-1); LYMPHOCYTES ABSOLUTE AUTO 1.16 K/mm3 (0.84-5.20); LYMPHOCYTES PERCENT AUTO 11 % (21-46); MONOCYTES ABSOLUTE AUTO 0.78 K/mm3 (0.16-1.47); MONOCYTES PERCENT AUTO 7 % (4-13); Mean Corpuscular HGB 29.8 pg (26.0-34.0); Mean Corpuscular Volume 93 fL (80-100); Mean Platelet Volume 9.8 fL (9.1-12.4); NEUTROPHILS ABSOLUTE AUTO 8.94 K/mm3 (1.96-9.15); NEUTROPHILS PERCENT AUTO 82 % (41-73); Platelet Count 139 K/mm3 (150-400); RDW Coefficient Variation 14.8 % (11.7-14.2); RDW Standard Deviation 50.8 fL (35.1-46.3); Red Blood Cell Count 2.95 M/mm3 (4.30-5.90); White Blood Cell Count 10.94 K/mm3 (4.00-11.30)
[2023-01-24 04:39] LABS: Albumin, Blood 2.5 g/dL (3.4-5.0); Albumin/Globulin Ratio 0.6 (0.8-1.8); Bilirubin, Total 0.4 mg/dL (0.1-1.0); Bun/Creatinine Ratio 14.2 (12.0-20.0); Calcium, Blood 7.2 mg/dL (8.5-10.1); Creatinine, Blood 4.15 mg/dL (0.60-1.20); Globulin, Blood 4.2 g/dL (2.2-4.0); Magnesium, Blood 2.1 mg/dL (1.6-2.4); Potassium, Blood 3.8 mmol/L (3.5-5.5); Total Protein, Blood 6.7 g/dL (6.4-8.2)
--- NOTE | 2023-01-24 06:38 | NUR ---
SUMMARY PATIENT REMAINS INTUBATED AND SEDATED, OPENS EYES TO SLIGHT STIMULI, FOLLOWING SIMPLE DIRECTIONS. ETT IN PLACE CONTINUE TO SUCTION BEAL WITH BLOODY SECRETIONS VIA ETT. PROPOFOL 10 MCG FOR SEDATION. GLUCOSE IMPROVING NOW ABLE TO MONITOR Q6 D5W CONTINUES TO INFUSE. SMALL BLACK LOOSE BM ONCE DURING THE NIGHT. OG REMAINS IN PLACE AND CLAMPED.
--- NOTE | 2023-01-24 10:20 | NUR ---
ASSUMPTION OF CARE REPORT RECEIVED FROM NOC RN. PT RESTING IN BED. PT ALERT TO VERBAL STIMULI, FOLLOWS SIMPLE COMMANDS. HR PACED 70'S, MAP >65. VENTILATOR SETTINGS AC/VC 16/450/5/35%. PROPOFOL ON SB, PT TOLERATING WELL. POWERGLIDE TO GERALD, PIV TO RIGHT HAND, PIV TO LEFT HAND. BASS PATENT DRAINING TO GRAVITY. D5 INFUSING AT 100MLS/HR.
[2023-01-24] MEDS ORDERED: Amlodipine Bes2.5 MG PO (14:19)
[2023-01-24] MEDS ORDERED: ATOR40TA PO (14:20)
[2023-01-24] MEDS ORDERED: Imdur-ER60 MG PO (14:27)
[2023-01-24 17:15] LABS: Vancomycin, Random 12.5 ug/mL
--- NOTE | 2023-01-24 18:21 | NUR ---
SHIFT SUMMARY PT RESTING IN BED. ALERT TO VERBAL STIMULI, PT FOLLOWS SIMPLE COMMANDS. HR PACED, 60'S, MAP > 65. PT INTUBATED AND SEDATED, PROPOFOL INFUSING AT 10MCG/KG FOR MAJORITY OF THE SHIFT, INCREASED TO 20MCG/KG AT THIS TIME. PT ON SBT FOR MAJORITY OF THE SHIFT, TOLERATED WELL. PT VENTILATOR SETTINGS NOW AC/VC 16/450/5/30%. OXYGEN SATURATION REMAINED >95%. POWERGLIDE TO GERALD, PIV TO LEFT AND RIGHT HAND. OG TUBE IN PLACE, TUBE FEEDS STARTED AT 1600, INFUSING AT GOAL RATE OF 40MLS/HR. TEMP BASS IN PLACE DRAINING YELLOW URINE TO GRAVITY.
--- NOTE | 2023-01-24 20:00 | NUR ---
ASSUMED CARE OF PT AT 1915. REPORT RECEIVED. PT PRESENTS IN BED. AWAKENS TO TACTILE STIMULI. WILL OPEN EYES FOR A SHORT PERIOD AND THEN FALLS BACK ASLEEP. PT IN NO APPARENT DISTRESS AT THIS TIME. PROPOFOL INFUSING AT 20 MCG'S/KG/MIN WITH GOOD VENT TOLERANCE. NO S/S ADVERSE REACTIONS TO ANTIBIOTIC THERAPY. TF AT GOAL. WILL REVIEW CHART AND PLAN OF CARE FOR THIS PT.
--- NOTE | 2023-01-24 22:33 | NUR ---
PT WILL AWAKEN WITH TURNS, AND ORAL CARE. NO APPARENT DISTRESS. MAINTAINING OXYGEN SATURATIONS WELL WITH CURRENT VENT SETTINGS. AC 16, Tv 450, FIO2 30 PERCENT WITH PEEP AT 5.0.
[2023-01-25] VITALS (29 sets, daily range): BP systolic 94–156; BP diastolic 54–84
[2023-01-25 05:43] LABS: BASOPHILS PERCENT AUTO 0 % (0-2); EOSINOPHILS PERCENT AUTO 0 % (0-6); Hemoglobin 8.6 g/dL (13.5-17.5); IMMATURE GRAN ABSOLUTE AUTO 0.05 K/mm3 (0.00-0.10); IMMATURE GRAN PERCENT AUTO 1 % (0-1); LYMPHOCYTES ABSOLUTE AUTO 0.78 K/mm3 (0.84-5.20); LYMPHOCYTES PERCENT AUTO 9 % (21-46); MONOCYTES ABSOLUTE AUTO 0.42 K/mm3 (0.16-1.47); MONOCYTES PERCENT AUTO 5 % (4-13); Mean Corpuscular HGB 29.5 pg (26.0-34.0); Mean Corpuscular HGB Conc 31.9 g/dL (31.5-36.5); Mean Corpuscular Volume 93 fL (80-100); Mean Platelet Volume 10.7 fL (9.1-12.4); NEUTROPHILS ABSOLUTE AUTO 7.91 K/mm3 (1.96-9.15); NEUTROPHILS PERCENT AUTO 86 % (41-73); Platelet Count 131 K/mm3 (150-400); RDW Coefficient Variation 14.5 % (11.7-14.2); RDW Standard Deviation 49.4 fL (35.1-46.3); RETICULOCYTE ABSOLUTE 0.0336 M/mm3 (0.0200-0.1100); RETICULOCYTE COUNT PERCENT 1.15 % (0.50-2.50); Red Blood Cell Count 2.92 M/mm3 (4.30-5.90); White Blood Cell Count 9.16 K/mm3 (4.00-11.30)
[2023-01-25 06:03] LABS: Albumin, Blood 2.2 g/dL (3.4-5.0); Anion Gap 11 mmol/L (6-16); Blood Urea Nitrogen 68 mg/dL (8-24); Bun/Creatinine Ratio 16.2 (12.0-20.0); CO2, Blood 19 mmol/L (21-32); Calcium, Blood 6.7 mg/dL (8.5-10.1); Chloride, Blood 106 mmol/L (98-108); Glomerular Filtration Rate 13 (60-); Glucose, Blood 463 mg/dL (70-99); Magnesium, Blood 2.1 mg/dL (1.6-2.4); Phosphorus, Blood 4.4 mg/dL (2.5-4.9); Potassium, Blood 3.8 mmol/L (3.5-5.5); Sodium, Blood 136 mmol/L (136-145); Vancomycin, Random 24.5 ug/mL
--- NOTE | 2023-01-25 07:03 | NUR ---
SEDATION VACATION DONE THIS AM. PT WAS ABLE TO FOLLOW COMMANDS. DID OVER-BREATHE VENT. REMAINS WITH PINK TINGED SECRETIONS FROM ETT. PT BACK TO PROPOFOL AT 20 MCG'S/KG/MIN. PT HAS LOOSE DARK BROWN STOOL THIS AM. WILL CONTINUE TO MONITOR PT, AND WILL REPORT OFF TO ONCOMING RN.
--- NOTE | 2023-01-25 09:47 | NUR ---
ASSUMPTION OF CARE REPORT RECEIVED FROM LORETO RN. PT RESTING IN BED. PT INTUBATED, PROPFOL ON SB. PT ABLE TO FOLLOW SIMPLE COMMANDS. VENTILATOR SET TO SPONTANEOUS, PT TOLERATING WELL. OXYGEN SATURATION >95%. HR PACED RATE 60'S, MAP >65. POWERGLIDE TO GERALD, PIV TO LEFT AND RIGHT HAND. TUBE FEED INFUSING AT GOAL RATE OF 40MLS/HR. TEMP BASS PATENT DRAINING TO GRAVITY.
--- NOTE | 2023-01-25 11:10 | NUR ---
PT EXTUBATED.... PT EXTUBATED TO 2L NC AT 1104. VS STABLE. WILL CONTINUE TO MONITOR.
--- NOTE | 2023-01-25 18:24 | NUR ---
SHIFT SUMMARY PT RESTING IN BED. ALERT AND ORIENTED. PT EXTUBATED AT 1104 AND PLACED ON NC AT 4 LPM, DECREASED TO 2LPM, PT NOW ON RA, OXYGEN SATURATION REMAINED >95%. HR PACED, 60-70'S, MAP > 65. POWERGLIDE TO GERALD INFUSING NS TKO. BASS IN PLACE PATENT DRAINING TO GRAVITY. PT HAD FREQUENT AND MULTIPLE EPISODES OF LOOSE STOOL.
--- NOTE | 2023-01-25 20:00 | NUR ---
ASSUMED CARE OF PT AT 1900. REPORT RECEIVED. PT PRESENTS IN BED. ALERT AND ORIENTED. DOES HAVE GARBLED SPEECH PATTERN. TEACHING DONE ON SLOWING HIS WORDS TO FOCUS ON EACH WORD FOR UNDERSTANDING. PT DEMONSTRATES UNDERSTANDING. DID WORK WITH SAFE SWALLOW USING CHIN TUCK TECHNIQUE. THIS ALLOWS PT TO BE ABLE TO SWALLOW WITH HONEY THICK FLUIDS. WILL REVIEW CHART AND PLAN OF CARE FOR THIS PT.
--- NOTE | 2023-01-25 23:18 | NUR ---
PT HAS CALLED FREQUENTLY (APPROX Q 10 MINUTES) FOR BM. PT INCONTINENT, AND IS ABLE TO USE BEDPAN AT THIMES. HAS VERY SMALL SOFT STOOLS. PT MEDICATD WITH 25 MCG'S FENTANYL FOR "ALL OVER" PAIN. THIS AFFECTIVE. WILL CONTINUE TO MONITOR.
[2023-01-26] VITALS (12 sets, daily range): BP systolic 100–144; BP diastolic 57–97
[2023-01-26 04:31] LABS: BASOPHILS ABSOLUTE AUTO 0.01 K/mm3 (0.00-0.23); BASOPHILS PERCENT AUTO 0 % (0-2); EOSINOPHILS PERCENT AUTO 0 % (0-6); Hemoglobin 9.9 g/dL (13.5-17.5); IMMATURE GRAN PERCENT AUTO 1 % (0-1); LYMPHOCYTES ABSOLUTE AUTO 1.66 K/mm3 (0.84-5.20); LYMPHOCYTES PERCENT AUTO 14 % (21-46); MONOCYTES PERCENT AUTO 6 % (4-13); Mean Corpuscular HGB Conc 31.9 g/dL (31.5-36.5); Mean Corpuscular Volume 91 fL (80-100); Mean Platelet Volume 9.9 fL (9.1-12.4); NEUTROPHILS ABSOLUTE AUTO 9.09 K/mm3 (1.96-9.15); NEUTROPHILS PERCENT AUTO 79 % (41-73); Platelet Count 161 K/mm3 (150-400); RDW Coefficient Variation 14.1 % (11.7-14.2); RDW Standard Deviation 46.8 fL (35.1-46.3); Red Blood Cell Count 3.41 M/mm3 (4.30-5.90); White Blood Cell Count 11.56 K/mm3 (4.00-11.30)
[2023-01-26 04:42] LABS: Magnesium, Blood 2.1 mg/dL (1.6-2.4)
--- NOTE | 2023-01-26 06:25 | NUR ---
PT HAS HAD MULTIPLE SMALL STOOLS. INCONTINENT. STATES THAT IT HAPPENS WHEN HE COUGHS. PT HAS MAINTAINED SATURATIONS > 90 PERCENT. HAS OCCASSIONAL MOIST COUGH. HAVE MEDICATED PT ONCE THIS NIGHT WITH FENTANYL FOR GENERAL PAIN. THIS WAS AFFECTIVE. WILL CONTINUE TO MONITOR PT, AND WILL REPORT OFF TO ONCOMING RN.
[2023-01-26 06:49] LABS: Albumin, Blood 2.6 g/dL (3.4-5.0); Blood Urea Nitrogen 72 mg/dL (8-24); Bun/Creatinine Ratio 16.3 (12.0-20.0); CO2, Blood 25 mmol/L (21-32); Calcium, Blood 7.6 mg/dL (8.5-10.1); Creatinine, Blood 4.42 mg/dL (0.60-1.20); Glomerular Filtration Rate 12 (60-); Glucose, Blood 87 mg/dL (70-99); Phosphorus, Blood 4.7 mg/dL (2.5-4.9)
--- NOTE | 2023-01-26 07:00 | NUR ---
ASSUME CARE: I have assumed care of this patient.
--- NOTE | 2023-01-26 10:06 | NUR ---
FAMILY UPDATE: Pt's updated via telephone.
--- NOTE | 2023-01-26 13:15 | NUR ---
PROVIDER UPDATE: Dr Marks updated on pt status. Pt has increased work of breathing and is more fatigued. Also, pt states he does not want to be intubated again if needed. See new orders.
[2023-01-26 14:03] LABS: Anion Gap 8 mmol/L (6-16); Chloride, Blood 111 mmol/L (98-108); Sodium, Blood 144 mmol/L (136-145)
--- NOTE | 2023-01-26 14:22 | NUR ---
PATIENT UPDATE: Pt unable to tolerate BIPAP due to discomfort. RN explained her concerns to pt regarding his respiratory status.
--- NOTE | 2023-01-26 16:22 | NUR ---
SHIFT/TRANSFER SUMMARY: Pt taken to PCU via hospital bed by [facility]. HIPAA compliant message left for Deedee at home. Pt awake and alert on room air. Farris removed this shift and pt voiding spontaneously into brief since. Several incontinent BMs with coughing or position changing. Tylenol given for fever. Pt able to swallow pills whole in applesauce.
--- NOTE | 2023-01-26 17:20 | NUR ---
PATIENT TRANSFER TO PCU. USED LIFT TO TRANSFER. PATIENT ALERT AND ORIENTED X3-4. SLURRED SPEECH AND HARD TO UNDERSTAND. PERRLA. RIGHT FACIAL DROOP. VERY WEAK THROUGHOUT. BILATERAL MUD LOGGER STRENGTH WEAK, SLIGHTLY WEAKER ON RIGHT SIDE. Q2 TURNING AND NEEDED. FLOATING LEFT SIDE AND LEGS AT THIS TIME. TELE SHOWING V PACED WITH HR 80'S. BLOOD PRESSURE STABLE. BLE MINIMAL EDEMA. DENIES CHEST PAIN/PRESSURE/PALPITATIONS. PPP. DENIES ABDOMINAL PAIN/NAUSEA. BOWEL TONES PRESENT. SMALL SMEAR BM UPON ADMIT. ATTENDS AND CREAM APPLIED. NPO ORDERS IN PLACE EXCEPT MEDS WHOLE WITH APPLESAUCE, SEE SPEECH ORDERS. Q4 ORAL CARE AND NEEDED. MOUTH CLEAN AND TISSUE INTACT. DENTURES AT HOME. ON ROOM AIR UPON TRANSFER, PATIENT SATING 89-90% SPO2. 2L NASAL CANNULA PLACED AND PATIENT SATING 93-94% SPO2. LUNGS SOUNDING DIM WITH EXPIRATORY WHEEZE. VERY WEAK CONGESTED COUGH. RESPIRATORY CARE IN AND BIPAP IN ROOM ON STANDBY. INCENTIVE SPIROMETER AND FLUTTER VALVE USED WITH RESPIRATORY THERAPIST. CBG Q6. ICU NURSE PLACED CALL TO TO UPDATE ON TRANSFER, NO ANSWER. THIS RN WILL ATTEMPT TO CALL ISABELLE. DEXTROSE 5% INFUSING PER EMAR. CALL LIGHT IN REACH. PATIENT ABLE TO DEMONSTRATE HOW TO USE CALL LIGHT TO THIS RN. COVID AND CDIFF PRECAUTIONS IN PLACE.
--- NOTE | 2023-01-26 18:03 | NUR ---
CALLED PLACED TO WITH DINA, THIS RN SPOKE WITH DINA AND THEN DINA WAS ABLE TO SPEAK WITH OLIVERIO WITH THIS RN ASSISTANCE. THIS RN UPDATED ON CURRENT CARE PLAN AND EVENTS THROUGHOUT THE DAY. THIS RN DISCUSSED EXTUBATION, RESPIRATORY STATUS, ATTEMPT TO USE BIPAP, 2L NASAL CANNULA, WORK OF BREATHING, DNI CODE STATUS, SPEECH THERAPY ORDERS, SWALLOWING ISSUES AND ASPIRATIONS PRECAUTIONS, NPO STATUS, BLOOD SUGAR CHECKS AND DEXTROSE FLUIDS, CDIFF RESULTS, TREATMENT PLAN, CURRENT MEDICATIONS, PROBABLE STROKE WITH SLURRED SPEECH AND FACIAL DROOP. PROVIDED PCU NURSE STATION PHONE NUMBER FOR UPDATES.
[2023-01-27 04:14] VITALS: BP 126/49
[2023-01-27 05:16] LABS: BASOPHILS ABSOLUTE AUTO 0.02 K/mm3 (0.00-0.23); BASOPHILS PERCENT AUTO 0 % (0-2); EOSINOPHILS ABSOLUTE AUTO 0.01 K/mm3 (0.00-0.68); EOSINOPHILS PERCENT AUTO 0 % (0-6); Hematocrit 31.4 % (37.0-53.0); Hemoglobin 10.1 g/dL (13.5-17.5); IMMATURE GRAN ABSOLUTE AUTO 0.15 K/mm3 (0.00-0.10); IMMATURE GRAN PERCENT AUTO 2 % (0-1); LYMPHOCYTES ABSOLUTE AUTO 1.39 K/mm3 (0.84-5.20); LYMPHOCYTES PERCENT AUTO 21 % (21-46); MONOCYTES ABSOLUTE AUTO 0.65 K/mm3 (0.16-1.47); MONOCYTES PERCENT AUTO 10 % (4-13); Mean Corpuscular HGB 29.1 pg (26.0-34.0); Mean Corpuscular HGB Conc 32.2 g/dL (31.5-36.5); Mean Corpuscular Volume 91 fL (80-100); NEUTROPHILS ABSOLUTE AUTO 4.38 K/mm3 (1.96-9.15); NEUTROPHILS PERCENT AUTO 66 % (41-73); NRBC ABSOLUTE 0.03 K/mm3 (0.00-0.02); NRBC Auto 0.5 /100 WBC (0.0-0.2); Platelet Count 162 K/mm3 (150-400); RDW Coefficient Variation 14.3 % (11.7-14.2); RDW Standard Deviation 47.6 fL (35.1-46.3); Red Blood Cell Count 3.47 M/mm3 (4.30-5.90)
[2023-01-27 05:33] LABS: Magnesium, Blood 1.9 mg/dL (1.6-2.4)
[2023-01-27 05:34] LABS: Albumin, Blood 2.6 g/dL (3.4-5.0); Anion Gap 7 mmol/L (6-16); Blood Urea Nitrogen 71 mg/dL (8-24); Bun/Creatinine Ratio 16.1 (12.0-20.0); CO2, Blood 27 mmol/L (21-32); Calcium, Blood 7.2 mg/dL (8.5-10.1); Chloride, Blood 111 mmol/L (98-108); Creatinine, Blood 4.42 mg/dL (0.60-1.20); Glomerular Filtration Rate 12 (60-); Glucose, Blood 137 mg/dL (70-99); Phosphorus, Blood 4.9 mg/dL (2.5-4.9); Potassium, Blood 2.9 mmol/L (3.5-5.5); Sodium, Blood 145 mmol/L (136-145)
--- NOTE | 2023-01-27 06:40 | NUR ---
SHIFT SUMMARY PATIENT ALERT AND ORIENTED X3-4. WAS ON 2 LITERS O2 ALL NIGHT WITH NO COMPLAINTS OF SHORTNESS OF BREATH, PATIENT TACHYPNIC. RECEIVED NEB TREATMENTS BY RT. PATIENT UNABLE TO TOLERATE WEARING BIPAP OVERNIGHT. VITAL SIGNS STABLE, NO COMPLAINTS OF CHEST PAIN. WILL CONTINUE TO MONITOR. CALL LIGHT WITHIN REACH.
[2023-01-27 07:47] VITALS: BP 122/61
--- NOTE | 2023-01-27 09:41 | NUR ---
AM NOTE: PATIENT ALERT AND ORIENTED X3-4. NOT ABLE TO TELL ME DATE AND UNSURE ON DETAILS SURROUNDING HOSPITAL STAY. PERRLA. SPEECH IS MORE CLEAR AND PATIENT IS EASIER TO UNDERSTAND COMPARED TO YESTERDAY DAY SHIFT. IMPROVED LEFT STUMPER FELLER STRENGTH. PATIENT STILL HAVING TROUBLE WITH FINE MOTOR SKILL ON LEFT SIDE, UABLE TO USE CALL LIGHT ON LEFT SIDE. VERY WEAK THROUGHOUT. DENIES NUMBNESS/TINGLING. PT/OT ORDERS IN PLACE. SPEECH THERAPY IN THIS AM TO ASSESS PATIENT. UPGRADED TO PUREE AND NECTAR THICK BY SPOON WITH FEEDING ASSISTANCE. TELE SHOWING V PACED WITH HR 80'S. BP STABLE. PPP. EDEMA NOTED TO BLE. DENIES CHEST PAIN/PRESSURE/PALPITATIONS. WEARING 2-3L NASAL CANNULA THIS AM. LUNGS SOUNDING TIGHT WITH EXPIRATORY WHEEZE AND DIMINISHED IN BASES. VERY WEAK COUGH WITH MINIMAL SPUTUM PRODUCTION. SUCTION AT BEDSIDE. PATIENT NOT ABLE TO TOLERATE BIPAP PER NOC SHIFT REPORT. BIPAP REMAINS ON STANBY AT BEDSIDE. RR 28-36 THIS AM. PATIENT REFUSING BIPAP WITH THIS RN AND RESPIRATORY THERAPIST IN ROOM THIS AM. BOWEL TONES PRESENT. PATIENT STATES HE FEELS HUNGRY. DENIES ABDOMINAL PAIN/NAUSEA. SEE SPEECH ORDERS. Q4 ORAL CARE. NO TEETH, DENTURES AT HOME. ATTENDS IN PLACE. PATIENT PRODUCING YELLOW URINE. INCONTINENT OF BOTH URINE AND STOOL. SMALL SMEAR LIKE BOWEL MOVEMENT THIS AM. CDIFF PRECAUTIONS IN PLACE. CREAM APPLIED TO BOTTOM. BED BATH GIVEN THIS AM. DEXTROSE 5% INFUSING PER EMAR WELL POTASSIUM REPLACEMENT. POWERGLIDE TO LEFT UPPER ARM WNL. MEDICATED X1 THIS AM FOR BACK PAIN WITH GOOD RELIEF. CALL LIGHT IN REACH. PATIENT DENIES NEEDS AT THIS TIME. PALLIATIVE CARE RN ALYSON DISCUSSED CASE WITH THERMOSTAT MAKER NICOLE. DR. SERNA BY THIS AM FOR PROVIDER VISIT, THIS RN AT BEDSIDE.
--- NOTE | 2023-01-27 10:10 | NUR ---
BABATUNDE SEPULVEDA ([phone]) CALLED AND THIS RN PROVIDED UPDATE WITH PATIENT PERMISSION. COCO STATES DINA IS STRUGGLING RETAINING INFORMATION PROVIDED WITH UPDATES BY NURSES. 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 COCO PLANNING ON VISITING PATIENT THIS AFTERNOON.
[2023-01-27 11:08] VITALS: BP 115/67
--- NOTE | 2023-01-27 11:27 | NUR ---
DR. SERNA CALLED AND UPDATED THIS AM. PATIENT SEEMS TO BE MORE FRUSTERATED AND NOT ABLE TO EXPRESS NEEDS SPECIFIC NEEDS. STILL ANSWERING ALL ORIENTING QUESTIONS. PATIENT KEEPS TELLING RN AND PRODUCTION TRUCK DRIVER "TURN PROGRAM OFF" NO INTERVENTIONS HAVE BEEN HELPFUL. PATIENT STATES HE IS IN PAIN. ORDERS FOR NORCO 5/325 PO PRN Q6. BLOOD SUGARS HAVE BEEN TRENDING UP WITH MOST RECENT CBG 166. ORDERS TO STOP DEXTROSE 5%. ORDERS TO CHANGE INSULIN SCHEDULE AND CBG SCHEDULE TO AC. ORDERS IN PLACE.
--- NOTE | 2023-01-27 12:19 | NUR ---
PATIENT SITTING ON SIDE OF BED WITH PHYSICAL THERAPY. THERPIST REPORTS PATIENT BEING ANXIOUS. RN TO BEDSIDE, PATIENT REPORTS PAIN, MEDICATED PER EMAR WITH PO NORCO. PLAN TO GET UP IN RECLINER THIS AFTERNOON. RESPIRATORY THERAPY IN, BREATHING TREATMENT GIVEN. THIS RN FOUND DENTURES AND GLASSES IN PERSONAL BELONGINGS. PATIENT TAKING A FEW BITES OF LUNCH: 3 BITES OF MASHED POTATOES, 1 BITE OF APPLESAUCE AND ABOUT 50 ML OF NECTAR THICK APPLE JUICE. PATIENT BECAME TO SLEEPY TO CONTINUE FEEDING. ORAL CARE COMPLETED POST LUNCH. CALL LIGHT IN REACH
--- NOTE | 2023-01-27 15:18 | NUR ---
DR. GROSSMAN IN TO SEE PATIENT. THIS RN PROVIDED UPDATE. 1500 POTASSIUM LAB DRAWN AND SENT TO LAB. DINA AND BABATUNDE SEPULVEDA TO BEDSIDE, THIS RN PROVIDED UPDATE. PATIENT IN RECLINER, OCCUPATIONAL THERAPY. PATIENT MORE AWAKE AND WITH THIS RN ASSISTANCE ABLE TO DRINK VIA SPOON NECTAR THICK APPLEJUICE WITH NO COUGHING OR SIGNS OF ASPIRATION. ALYSON FROM PALLIATIVE CARE IN TO DISCUSS CODE STATUS WITH FAMILY AND PATIENT. PATIENT DENIES PAIN AT THIS TIME. SITTING IN RECLINER VISITING WITH FAMILY. CALL LIGHT IN REACH.
--- NOTE | 2023-01-27 15:59 | NUR ---
F/U visit this afternoon. Pt resting in recliner chair upon arrival. Pt's and niece at bedside. Brief review of plan of care. Engaged in brief gentle advanced care planning including planning for the future. Niece reports at baseline Pt is idependent at assists his with needs as she has suffered a stroke in the past. Continued therapeutic listening. Pt minimally engages in conversation and appears to struggle with understanding at times. Discussed Pt's code status wishes. Educated on life sustaining treatments including risks and implications to CPR. Pt reports his wishes are DNI but does want CPR. Encouraged family to have routine conversations with Pt as health issues progresses. Pt and family agreeable for continued supportive visits. Palliative Care will remain available
[2023-01-27 16:24] VITALS: BP 98/64
[2023-01-27 17:27] VITALS: BP 119/58
--- NOTE | 2023-01-27 17:33 | NUR ---
SHIFT SUMMARY: SEE PREVIOUS NOTES FOR UPDATES. VITAL SIGNS REMAIN STABLE. UP IN RECLINER THIS AFTERNOON, BACK TO BED AT THIS TIME, FLOATING RIGHT SIDE. PATIENT COMPLAINS OF INTERMIT LOWER BACK PAIN AND SORE BOTTOM. Q1-2 TURNS, CREAM APPLIED ON BOTTOM. NO BOWEL MOVEMENT THIS SHIFT. PATIENT URINATING IN ATTENDS. ATTEMPT FOR CONDOM CATH. REMAINS V PACED WITH HR 70-80'S. REMAINS ON 3L. PATIENT EATING LARGER AMOUNT OF DINNER COMPARED TO LUNCH. NO COUGHING OR ISSUES NOTED WITH SWALLOWING. CALL LIGHT IN REACH. PATIENT RESTING AT THIS TIME WITH CLOSED EYES. DENIES NEEDS. BED IN LOW/LOCKED POSITION.
[2023-01-27 20:20] VITALS: BP 142/70
[2023-01-28 00:50] VITALS: BP 109/56
[2023-01-28 04:56] VITALS: BP 110/62
--- NOTE | 2023-01-28 05:14 | NUR ---
SHIFT SUMMARY THIS RN ASSUMED CARE OF PATIENT AT 1900. PT CONTINUES TO HAVE WEAKNESS THROUGHOUT, SLIGHTLY MORE WEAK ON LEFT SIDE THAN RIGHT SIDE. MILD LEFT FACIAL DROOP NOTED; PREVIOUS RN NOTING THAT IT IS IMPROVED FROM PREVIOUS DAY SHIFT. NO NOTED NEURO CHANGES DURING THIS SHIFT; A&O X3. ABLE TO MAKE NEEDS KNOWN. ORAL CARE DONE AFTER FLUIDS/FOOD GIVEN; PT APPEARS TO POCKET FOOD IN CHEEKS OCCASIONALLY. PRODUCTIVE COUGH WITH YELLOW SECRETIONS NOTED. PT ENCOURAGED TO COUGH AND DEEP BREATHE; INCENTIVE SPIROMETER AND FLUTTER VALVE AT BEDSIDE; PT ENOURAGED TO USE WHILE AWAKE. BP STABLE. VPACED WITH HR 70-80'S. ON 2-3L WITH SPO2 >92%. AFEBRILE. MEDICATED PER EMAR FOR PAIN. REPOSITIONING Q2HRS. SMALL SOFT BM DURING THIS SHIFT. 2 INCONTINENT PADS DURING THIS SHIFT FOR URINARY OUTPUT. BED IN LOWEST POSITION AND CALL LIGHT WITHIN REACH. THIS RN WILL REPORT TO ONCOMING RN.
[2023-01-28 05:45] LABS: Albumin, Blood 2.5 g/dL (3.4-5.0); Anion Gap 6 mmol/L (6-16); Blood Urea Nitrogen 69 mg/dL (8-24); Bun/Creatinine Ratio 13.9 (12.0-20.0); CO2, Blood 28 mmol/L (21-32); Calcium, Blood 7.1 mg/dL (8.5-10.1); Chloride, Blood 113 mmol/L (98-108); Creatinine, Blood 4.98 mg/dL (0.60-1.20); Glomerular Filtration Rate 11 (60-); Glucose, Blood 85 mg/dL (70-99); Phosphorus, Blood 4.9 mg/dL (2.5-4.9); Potassium, Blood 3.7 mmol/L (3.5-5.5); Sodium, Blood 147 mmol/L (136-145)
[2023-01-28 07:43] VITALS: BP 122/43
[2023-01-28 15:21] VITALS: BP 123/51
--- NOTE | 2023-01-28 15:21 | NUR ---
SHIFT SUMMARY/TRANSFER OF CARE: PT ALERT AND ORIENTED X3, ABLE TO STATE NAME, , LOCATION. UNAWARE OF CURRENT DATE AND PRESIDENT. PT WITH HX OF STROKE THIS ADMISSION, STRENGTH WEAK, PT WITH L SIDE DEFECIT AND MILD L FACIAL DROOP. BP STABLE, HR PACED 60'S, AFEBRILE. SPO2 >95% ON 2L NC. RESPIRATIONS EVEN AND UNLABORED AT REST, PT STATES SHORTNESS OF BREATH WITH ACTIVITY. LUNG SOUNDS COARSE WITH EXP WHEEZE. PT WITH PRODUCTIVE COUGH, SUCTION AT BEDSIDE. PULSES STRONG AND EQUAL THROUGHOUT. SPEECH THERAPY IN THIS AM, REMAINS ON PUREE AND NECTAR THICK DIET. PILLS CRUSHED IN APPLESAUCE. PT IN CHAIR THIS MORNING VIA CEILING LIFT. TOLERATED WELL. POWERGLIDE REMAINS IN GERALD, DRAWS AND FLUSHES. D5 1/2 NS GTT @75ML/HR. PT WITH MUTIPLE INC VOIDS, NO BM. REPOS Q2 TO MAINTAIN SKIN INTEGRITY. AND NIECE AT BEDSIDE AND UPDATED ON PT CARE. BED IN LOW, CALL LIGHT IN REACH, WILL ZABRINA Barajas RN ASSUMING CARE
[2023-01-28 20:10] VITALS: BP 123/60
[2023-01-28 23:28] VITALS: BP 107/52
[2023-01-29 03:29] VITALS: BP 126/54
--- NOTE | 2023-01-29 03:39 | NUR ---
SHIFT SUMMARY THIS RN ASSUMED CARE OF PATIENT AT 1900. PT A&O X3. UNSURE OF DATE/TIME. ABLE TO MAKE NEEDS KNOWN. CALLING APPROPRIATELY. WEAK THROUGHOUT, ONLY SLIGHTLY WEAKER ON LEFT SIDE. SOFT/SLURRED SPEECH AT TIMES. OTHERWISE NEURO REMAINS UNCHANGED. BP STABLE. VPACED WITH HR 70-80'S. AFEBRILE. ON 2L VIA NC WITH SPO2 >92%. RR 22-24. PLACED EGG CRATE ON BED. REPOSITIONING Q2HRS. ATTENDS IN PLACE; CONTINENT/INCONTINENT AT TIMES. OCCASIONAL SMALL AMOUNTS OF LOOSE STOOLS. BED IN LOWEST POSITION AND CALL LIGHT WITHIN REACH. THIS RN WILL REPORT TO MEDICAL FLOOR NURSE AND TRANSFER CARE.
[2023-01-29 04:15] LABS: Albumin, Blood 2.4 g/dL (3.4-5.0); Anion Gap 8 mmol/L (6-16); Blood Urea Nitrogen 70 mg/dL (8-24); Bun/Creatinine Ratio 12.9 (12.0-20.0); CO2, Blood 26 mmol/L (21-32); Chloride, Blood 110 mmol/L (98-108); Creatinine, Blood 5.41 mg/dL (0.60-1.20); Glomerular Filtration Rate 10 (60-); Glucose, Blood 180 mg/dL (70-99); Phosphorus, Blood 4.8 mg/dL (2.5-4.9); Potassium, Blood 3.4 mmol/L (3.5-5.5); Sodium, Blood 144 mmol/L (136-145)
--- NOTE | 2023-01-29 04:51 | NUR ---
TRANSFER NOTE 87 YR OLD MALE RECEIVED FROM PCU WITH DX OF RESP FAIL WITH HYPOXIA, C-DIFF AND COVID POSITIVE. PLACED ON ISOLATION PRECAUTIONS. POURING CRANE OPERATOR REPORTED PT WAS FOUND BY AT HOME NONRESPONSIVE. WAS INTUBATED IN THE ICU, EXTUBATED THE , AND SENT TO PCU. RN STATED PT REFUSED INTUBATION IN THE FUTURE BUT "WANTS EVERYTHING ELSE". PUREE DIET. NECTAR THICK LIQUIDS AND MEDS WHOLE IN APPLESAUCE. REPORTED LEFT SIDE WEAKNESS DUE TO POSSIBLE CVA. NEURO CHECKS Q 8 HR. NEXT DUE AROUND 12 NOON. WILL PASS THIS INFO TO DAY SHIFT. CALL LIGHT IN REACH.
[2023-01-29 04:58] VITALS: BP 126/51
[2023-01-29] MEDS ORDERED: SOAANZ20 M3 PO (05:50)
[2023-01-29] MEDS ORDERED: CALC.25 PO (05:51)
[2023-01-29 07:59] VITALS: BP 132/58
[2023-01-29 16:15] VITALS: BP 126/63
--- NOTE | 2023-01-29 17:57 | NUR ---
SHIFT SUMMARY: Pt remains alert to self and place this shift. Slurred speech at times. Able to make needs known. Q2 hour turn. 1:1 feed with pureed meals. Lung sounds course mid/upper lobes. On 2L NC. Incontinent of B&B. 2 soft brown stools this shift. Farris inserted as ordered to monitor accurate output as Cr elevating. IVF infusing as ordered. Penile adherance/excoriation noted with this shift hygiene. Cream applied. Family at bedside. No further needs id or verbalized at this time.
[2023-01-29 20:24] VITALS: BP 130/60
[2023-01-30 02:53] VITALS: BP 127/67
--- NOTE | 2023-01-30 03:53 | NUR ---
SHIFT SUMMERY, PT RESTING IN BED, PT BEING TURNED Q 2 AND PT HAVING OCCASINAL INCONT STOOL. PT IS SOME WHAT CONFUSED AND AT TIMES WILL CALL OUT FOR HELP AND NOT USE CALL LIGHT. PT CALLING OUT FOR HELP BECOUSE HE WANTS TO GET UP. PT NEEDS A LIFT TO GET UP PT NOT UNDERSTANDING WHY HE CAN NOT JUST GET UP. TRYED TO EXSOPLNE TO PT HE IS TOO WEAK TO GET UP. CALL LIGHT IN REACH BED ALRM ON. PT ABLETO STICK OUT TOUNGE, HAS DIFFICULTY PUFFING OUT CHEEKS. PT HAS WEAK HAND GRASPS AND NOT ABLE TO LIFT ARMS OR LEGS VERY MUCH, PT TOO WEAK. PUSH PULLS X4 WEAK.
[2023-01-30 05:46] LABS: BASOPHILS ABSOLUTE AUTO 0.01 K/mm3 (0.00-0.23); BASOPHILS PERCENT AUTO 0 % (0-2); EOSINOPHILS ABSOLUTE AUTO 0.28 K/mm3 (0.00-0.68); EOSINOPHILS PERCENT AUTO 4 % (0-6); Hematocrit 29.5 % (37.0-53.0); Hemoglobin 9.3 g/dL (13.5-17.5); IMMATURE GRAN ABSOLUTE AUTO 0.12 K/mm3 (0.00-0.10); IMMATURE GRAN PERCENT AUTO 2 % (0-1); LYMPHOCYTES ABSOLUTE AUTO 1.63 K/mm3 (0.84-5.20); LYMPHOCYTES PERCENT AUTO 24 % (21-46); MONOCYTES ABSOLUTE AUTO 0.65 K/mm3 (0.16-1.47); MONOCYTES PERCENT AUTO 9 % (4-13); Mean Corpuscular HGB Conc 31.5 g/dL (31.5-36.5); Mean Corpuscular Volume 92 fL (80-100); Mean Platelet Volume 9.7 fL (9.1-12.4); NEUTROPHILS ABSOLUTE AUTO 4.19 K/mm3 (1.96-9.15); NEUTROPHILS PERCENT AUTO 61 % (41-73); Platelet Count 153 K/mm3 (150-400); RDW Coefficient Variation 14.3 % (11.7-14.2); RDW Standard Deviation 48.8 fL (35.1-46.3); Red Blood Cell Count 3.21 M/mm3 (4.30-5.90); White Blood Cell Count 6.88 K/mm3 (4.00-11.30)
[2023-01-30 06:11] LABS: Albumin, Blood 2.5 g/dL (3.4-5.0); Anion Gap 7 mmol/L (6-16); Blood Urea Nitrogen 68 mg/dL (8-24); Bun/Creatinine Ratio 12.7 (12.0-20.0); CO2, Blood 27 mmol/L (21-32); Calcium, Blood 7.1 mg/dL (8.5-10.1); Chloride, Blood 119 mmol/L (98-108); Creatinine, Blood 5.35 mg/dL (0.60-1.20); Glomerular Filtration Rate 10 (60-); Glucose, Blood 193 mg/dL (70-99); Phosphorus, Blood 4.6 mg/dL (2.5-4.9); Sodium, Blood 153 mmol/L (136-145)
[2023-01-30 08:17] VITALS: BP 143/72
[2023-01-30 15:59] VITALS: BP 119/55
--- NOTE | 2023-01-30 18:19 | NUR ---
SHIFT SUMMARY PT AxOx2-3 WITH INTERM CONFUSION. PT ON SWALLOWING PRECAUTIONS, BUT DECLINED MOST MEALS THIS SHIFT. PT STATES THAT HE DOES NOT LIKE THE TEXTURE. PT HAD 3 SMALL SOFT BM'S THIS SHIFT. PT'S FAMILY ( AND NIECE) IN ROOM TODAY, DISCUSSED PLAN WITH PROVIDER. PT'S LS COARSE T/O. PT ON 2L O2 VIA NC. NOTED PT HAD HIGH RR BUT O2 SATS WNL. PT STRUGGLED WITH ANXIETY AND FRUSTRATION THIS EVENING. PT STATED TO FAMILY "I JUST WANT TO BE DONE. I WANT TO GO." FAMILY STATES HE WAS REFERENCING HIS WILL TO LIVE. PT REFUSED TO EAT DINNER. HE ALSO BECAME RESTLESS IN THE BED AND WAS TRYING TO GET UP WHILE ON BED REST FOR SIGNIFICANT DECONDITIONING. THERAPEUTIC COMMUNICATION PROVIDED AND MEDICATIONS ADMINISTERED. PT AND FAMILY APPEAR MORE RELAXED AT THIS TIME. WILL PASS ON THAT PALLIATIVE CARE IS NEEDED TOMORROW AM AND POSSIBLE REEVALUATE CODE STATUS. CALL LIGHT IN REACH. FAMILY STILL AT BEDSIDE. DENY ANY FURTHER NEEDS AT THIS TIME.
[2023-01-30 20:06] VITALS: BP 137/69
[2023-01-31 02:46] LABS: Hematocrit 26.9 % (37.0-53.0); Hemoglobin 8.5 g/dL (13.5-17.5); Mean Corpuscular HGB 29.1 pg (26.0-34.0); Mean Corpuscular HGB Conc 31.6 g/dL (31.5-36.5); Mean Corpuscular Volume 92 fL (80-100); Mean Platelet Volume 9.9 fL (9.1-12.4); Platelet Count 147 K/mm3 (150-400); RDW Coefficient Variation 14.2 % (11.7-14.2); Red Blood Cell Count 2.92 M/mm3 (4.30-5.90); White Blood Cell Count 6.39 K/mm3 (4.00-11.30)
[2023-01-31 02:51] LABS: PCO2 Venous 51.1 mmHg (38-42); pH Blood Venous 7.29 (7.34-7.37)
[2023-01-31 02:53] LABS: Base Excess Venous -1.7 mmol/L; Bicarbonate Venous 22.8 mmol/L (24.0-30.0)
[2023-01-31 03:11] LABS: Albumin, Blood 2.3 g/dL (3.4-5.0); Albumin/Globulin Ratio 0.5 (0.8-1.8); Bilirubin, Direct 0.2 mg/dL (0.0-0.3); Bilirubin, Indirect 0.1 mg/dL (0.1-0.7); Bilirubin, Total 0.3 mg/dL (0.1-1.0); Bun/Creatinine Ratio 11.6 (12.0-20.0); Calcium, Blood 7.5 mg/dL (8.5-10.1); Creatinine, Blood 5.44 mg/dL (0.60-1.20); Globulin, Blood 4.7 g/dL (2.2-4.0); Phosphorus, Blood 4.3 mg/dL (2.5-4.9); Potassium, Blood 4.1 mmol/L (3.5-5.5)
[2023-01-31 03:57] VITALS: BP 115/77
[2023-01-31 07:55] VITALS: BP 152/59
--- NOTE | 2023-01-31 18:32 | NUR ---
SHIFT SUMMARY PT IS AROUSABLE TO PHYSICAL STIMULI. UNABLE TO ASSESS MENTATION DUE TO INABILITY TO UNDERSTAND PT VERBAL RESPONSIVE. PT IS ABLE TO SHAKE HEAD ANSWERING SOME YES AND NO QUESTIONS. SHOOK HEAD "NO" TO FOOD AND WATER. ALSO "NO" WHEN ASKED IF HE HAD ANY PAIN. PT WAS VERY COLD THIS MORING. POWER GLIDE WAS LAYING NEXT TO HIM FOR UNKNOWN AMOUNT OF TIME. FAMILY HAS BEEN AT BEDSIDE FOR MOST OF THE SHIFT. DR. RAMON AND PALLIATIVE CARE MET WITH FAMILY. PT REQUIRES LIFT ASSISTANCE. PALE AND CLAMMY. PER RT, PT NOT NEEDING BIPAP AT THIS TIME. DR. RAMON AWARE. PT BECAME VERY IRRITATED, REQUIRING PRN ATIVAN. PT REFUSED HEPARIN, AND I DID NOT FEEL COMFORTABLE ADMIN PO MEDICAITON.
--- NOTE | 2023-01-31 18:38 | NUR ---
Extened conversation with and niece about his needs. Pt able to answer some questions with yes no. He is refusing food and has adible wheezes. He is minimal in his movements, ventilation is just adequate. Discussed with and niece his fraility and his past expressions about life support. They asked me about dialysis, once i reviewed it with them they stated he did would not want it. We also reviewed his code status he has had cardiac interventions. They changed him to DNR. ac follow up tomorrow on prognosis.
[2023-01-31 20:30] VITALS: BP 146/54
[2023-02-01 04:51] VITALS: BP 162/61
[2023-02-01 05:13] LABS: Base Excess Venous -3.2 mmol/L; Bicarbonate Venous 21.9 mmol/L (24.0-30.0); pH Blood Venous 7.34 (7.34-7.37)
[2023-02-01 05:19] LABS: Hemoglobin 8.2 g/dL (13.5-17.5); Mean Corpuscular HGB 28.7 pg (26.0-34.0); Mean Corpuscular HGB Conc 31.5 g/dL (31.5-36.5); Mean Corpuscular Volume 91 fL (80-100); Mean Platelet Volume 10.1 fL (9.1-12.4); Platelet Count 196 K/mm3 (150-400); RDW Coefficient Variation 14.1 % (11.7-14.2); RDW Standard Deviation 47.8 fL (35.1-46.3); Red Blood Cell Count 2.86 M/mm3 (4.30-5.90); White Blood Cell Count 8.24 K/mm3 (4.00-11.30)
[2023-02-01 05:32] LABS: Albumin, Blood 2.3 g/dL (3.4-5.0); Albumin/Globulin Ratio 0.4 (0.8-1.8); Bilirubin, Total 0.4 mg/dL (0.1-1.0); Bun/Creatinine Ratio 11.9 (12.0-20.0); Calcium, Blood 7.3 mg/dL (8.5-10.1); Creatinine, Blood 5.29 mg/dL (0.60-1.20); Globulin, Blood 5.2 g/dL (2.2-4.0); Potassium, Blood 3.8 mmol/L (3.5-5.5); Total Protein, Blood 7.5 g/dL (6.4-8.2)
--- NOTE | 2023-02-01 05:53 | NUR ---
SHIFT SUMMARY: PATIENT AGITATED AND CONFUSED ALL NIGHT. STATED "HELP ME" REPEATEDLY, BUT WAS UNABLE TO QUANTIFY WHAT HE WANTED. HE DID C/O PAIN "ALL OVER" AND WAS MEDICATED PER EMAR. REPEATEDLY REMOVED TELEMETRY, GOWN, OXYGEN, AND TRIED TO PULL HIS BASS WITHOUT SUCCESS. STATED "HELP ME GET UP" SO ATTEMPTED TO DANGLE AT EDGE OF BED BUT HE WAS UNABLE TO HOLD HIMSELF UP. MOVED HIM TO CHAIR USING LIFT, BUT THIS DID NOT HELP EITHER. NO BM THIS SHIFT. ATTEMPTED TITRATE OFF O2, BUT HE DESATURATED TO 85% ON RA, SO O2 PLACED @ 2 L/MIN NC WITH O2 SAT 94%. D5 + LR INFUSING AT 75 ML/HR. NO EVENTS ON TELEMETRY, V PACED 70'S.
[2023-02-01 06:07] LABS: BAND PERCENT MAN 3 % (0-8); BASOPHILS PERCENT MAN 0 % (0-2); EOSINOPHILS ABSOLUTE MAN 0.32 K/mm3 (0.00-0.68); EOSINOPHILS PERCENT MAN 4 % (0-6); LYMPHOCYTES % ATYPICAL MANUAL 3 % (0-0); LYMPHOCYTES ABSOLUTE MAN 2.14 K/mm3 (0.84-5.20); LYMPHOCYTES PERCENT MAN 23 % (21-46); METAMYELOCYTE ABSOLUTE MAN 0.32 K/mm3 (0.00-0.00); METAMYELOCYTE PERCENT MAN 4 % (0-0); MONOCYTES ABSOLUTE MAN 0.24 K/mm3 (0.16-1.47); MONOCYTES PERCENT MAN 3 % (4-13); NEUTROPHILS ABSOLUTE MAN 5.19 K/mm3 (1.96-9.15); SEG NEUTROPHILS PERCENT MAN 60 % (41-73); TOTAL CELLS COUNTED 100
[2023-02-01 07:58] VITALS: BP 145/57
--- NOTE | 2023-02-01 18:06 | NUR ---
SHIFT SUMMARY: PT YELLING OUT AT START OF SHIFT AND ATTEMPTING OOB. ATIVAN GIVEN PER EMAR AND PT HAS BEEN SLEEPING/CALM REST OF SHIFT. MORNING MEDICATIONS HELD DUE TO ASPIRATION RISK. PT AND NIECE ARRIVED THIS AFTERNOON AND REMAINED WITH PT FOR SEVERAL HOURS. 2/2 BAG D5LR INFUSING IN GERALD PG. PG PATENT AND FLUSHING W/O COMPLICATIONS. PT AGREED TO TAKE EVENING HEPARIN AND INSULIN. MEDICATED FOR PAIN ONCE PER EMAR. ROTATING PT Q2. DR. Pretty ARRIVED THIS AFTERNOON AND ORDERED BREATHING TREATMENTS AND CHEST X-RAY. PT CURRENTLY ON 3L DUE TO DESATING TO MID TO HIGH 80'S EARLY IN AM. CALL LIGHT IN REACH. BED IN LOWEST POSITION. WILL CONTINUE TO MONITOR.
[2023-02-01 20:47] VITALS: BP 117/77
--- NOTE | 2023-02-01 23:40 | NUR ---
PT IN BED YELLING FOR HELP, WHEN ASKED WHAT THIS RN COULD HELP HIM WITH HE STATED "UP, UP OVER THERE". ASSESSED PT FOR PAIN AND ANXIETY; MEDICATED PER EMAR. LET PT KNOW THAT WE CAN TALK ABOUT GETTING UP CLOSER TO THE MORNING.
[2023-02-02 06:14] VITALS: BP 149/69
--- NOTE | 2023-02-02 07:16 | NUR ---
SHIFT SUMMARY PT IS ALERT AND ORIENTED TO SELF. O2 AT LPM VIA NASAL CANNULA; STATS MAINTAINED >92% ON CONTINUOUS BIOX. PT CALLING OUT FOR HELP; ASSESSED PT NEEDS/PAIN/ANXIETY-MEDICATED PER EMAR. PT DENIES CHEST PAIN/PRESSURE/TIGHTNESS. PT ANSWERING IN ONE TO TWO WORDS-SLEPT T/O MOST OF SHIFT-RESPIRATIONS EQUAL, UNLABORED. NO ACUTE CHANGES NOTED.
[2023-02-02 07:42] VITALS: BP 125/62
[2023-02-02 13:00] LABS: Bun/Creatinine Ratio 11.6 (12.0-20.0); Calcium, Blood 8.1 mg/dL (8.5-10.1); Creatinine, Blood 5.51 mg/dL (0.60-1.20); Potassium, Blood 4.3 mmol/L (3.5-5.5)
[2023-02-02 15:01] VITALS: BP 101/47
--- NOTE | 2023-02-02 16:37 | NUR ---
PT IS ALERT, ORIENTED TO SELF AND FAMILY. THE PT WAS BEDREST TODAY. PT IS DROWSY. THE PT MOANS WITH PAIN WITH VERY LITTLE MOVEMENTS. PT WAS GIVEN NORCO THIS AM WITH HIS AM MEDS. WHEN MEDS WERE GIVEN THIS AM THE PT HAD TO BE ENCOURAGED TO SWALLOW. THE PT DECLINED BREAKFAST AND LUNCH. THE PT WAS REPOSITIONED T/O THE DAY. THIS AFTERNOON WHILE THE FAMILY WAS IN TO SEE THE PT I ATTEMPTED TO GIVE THE PT ANOTHER CRUSHED NORCO WITH APPLESAUCE AND A SIP OF WATER HE REFUSED. THE PT WAS MORE AGITATED AND ANXIOUS. IV FENTNYL AND ATIVAN WAS GIVEN. THE PT SEEMS MORE RELAXED AND COMFORTABLE NOW. CALL LIGHT IN REACH. BED IN THE LOW POSITION
[2023-02-02 21:18] VITALS: BP 121/52
[2023-02-03 02:35] VITALS: BP 135/67
--- NOTE | 2023-02-03 03:46 | NUR ---
SHIFT SUMMARY 87 YR M ADMITTED ON 01/23/23 FOR RESPIRATORY FAILURE W/ HYPOXIA. DNR. NO ACUTE CHANGES THIS SHIFT. PT HAS SLEPT FOR MOST OF THIS SHIFT BUT WHEN HE IS AWAKE HE IS VERY QUIET AND DOES NOT MOVE MUCH. HE MOANS WHEN REPOSITIONED. ATIVAN AND FENTANYL GIVEN FOR PAIN AND ANXIETY. PT WAS REMOVED FROM CONTACT PRECAUTION FOR COVID TODAY HE IS NOW PAST THE 10 DAY FIDELIA.
[2023-02-03 07:13] VITALS: BP 144/60
[2023-02-03 08:12] LABS: HBSAG SCREEN Negative (Negative); HCV AB Non Reactive (Non Reactive); HEP A AB, IGM Negative (Negative); HEP B CORE AB, TOT Negative (Negative)
[2023-02-03 08:33] LABS: Albumin, Blood 2.1 g/dL (3.4-5.0); Anion Gap 5 mmol/L (6-16); Blood Urea Nitrogen 65 mg/dL (8-24); Bun/Creatinine Ratio 11.7 (12.0-20.0); CO2, Blood 25 mmol/L (21-32); Calcium, Blood 7.8 mg/dL (8.5-10.1); Chloride, Blood 113 mmol/L (98-108); Creatinine, Blood 5.54 mg/dL (0.60-1.20); Glomerular Filtration Rate 9 (60-); Glucose, Blood 179 mg/dL (70-99); Phosphorus, Blood 4.6 mg/dL (2.5-4.9); Potassium, Blood 4.4 mmol/L (3.5-5.5); Sodium, Blood 143 mmol/L (136-145)
--- NOTE | 2023-02-03 13:59 | NUR ---
Pt not eating not much reponse. Needs comfort care. Review of pt with staff and care managers. Gave the family a few days to talk about hospice and a plan. Called the niece to see where they were with decisions. She is struggling to get pt to make decisions. We discussed that she is getting to forgetful and frail to face decision. the niece is going to call APS tomorrow and report them as demented. She states the house if full of filth and junk and is a horder situation. She will bring in or come in tomorrow and make him confort care. If cannot partipate in decisions . The niece is the one carrying the burden. relays she has long been a support to the patient and his and is all they have at this point. Advised that if he has any decline today or tonight we will call for a change in status. Updated ostomy care nurse of plan. Advied niece to look for funds to cover care facility for his hospice care.
[2023-02-03 14:44] VITALS: BP 111/67
--- NOTE | 2023-02-03 17:52 | NUR ---
PT HAS BEEN DROWSY T/O THE DAY AWAKENS MONENTARILY WITH VERBAL STIMULI, ANSWERS SOME QUESTIONS WITH A YES OR NO. THE PT MOANS WITH PAIN WITH ANY REPOSITIONING. PT REFUSED ALL MEALS AND WATER. THE PT IS ON IV FLUIDS, BASS CATH WAS REMOVED PER DR. BEAUCHAMP VERBAL ORDER AT THE BEDSIDE. PT WAS MEDICATED FOR PAIN X2 TODAY WITH IV MORPHINE. PT WAS REPOSTIONED T/O THE DAY. CALL LIGHT IN REACH. BED IN THE LOW POSITION
[2023-02-03 20:18] VITALS: BP 116/54
--- NOTE | 2023-02-04 02:26 | NUR ---
bladder scan at 2300 removal of philippe at 1530 yesterday afternoon revealed <99 ml urine. no output so far at this point. will inform MD of findings. Patient non verbal at this point. just squints and moans about 1-2 hours after receiving morphine. 02 demands have increased by 1.5 liters to maintain saturations of 85 - 90%. Night hospitalist, Dr. Guajardo was informed. will continue close observation.
[2023-02-04 03:00] VITALS: BP 131/60
--- NOTE | 2023-02-04 04:49 | NUR ---
PATIENT WAS NON VERBAL ALL NIGHT. NO URINE OUTPUT AFTER BASS REMOVAL SINCE 1530 WHEN BASS CATHETER REMOVED. AT 0200, MD WAS NOTIFIED THAT THE BLADDER WAS SCANNED FOR <99 ML OF URINE. ORDER TO CONTINUE MONITORING WERE GIVEN. MORPHINE 5MG GIVEN THROUGHOUT MOST OF THE NIGHT EVERY 4-5 HOURS.
[2023-02-04 07:43] VITALS: BP 118/75
[2023-02-04 08:10] LABS: Anion Gap 4 mmol/L (6-16); Blood Urea Nitrogen 70 mg/dL (8-24); Bun/Creatinine Ratio 11.1 (12.0-20.0); CO2, Blood 26 mmol/L (21-32); Calcium, Blood 7.7 mg/dL (8.5-10.1); Chloride, Blood 114 mmol/L (98-108); Creatinine, Blood 6.31 mg/dL (0.60-1.20); Glomerular Filtration Rate 8 (60-); Glucose, Blood 199 mg/dL (70-99); Phosphorus, Blood 6.7 mg/dL (2.5-4.9); Potassium, Blood 5.1 mmol/L (3.5-5.5); Sodium, Blood 144 mmol/L (136-145)
--- NOTE | 2023-02-04 11:13 | NUR ---
Met with family at Pt's bedside. Pt resting in bed with his eyes closed. Pt non reponsive with slight mottling on right lower extremity. Pt's spouse Deedee and Pt's niece at bedside. Engaged in therapeutic discussion regarding goals of care. Provided update and reviewed plan of care. Educated on comfort care philosophy with V/U made by niece and spouse. Niece and spouse confirm Pt's wishes are to move forward with comfort care. Offered therapeutic listening and answered questions. Spoke with Primary RN Geovanny and discussed case. Spoke with Dr Gonzalez and discussed case. Placed comfort care order, comfort care order set, D/C maintenance medications per V/O from Dr Gonzalez. Pt appears imminent and would benefit from remaining in the hospital. Palliative Care will remain available for symptom management and supportive visits.
--- NOTE | 2023-02-04 16:46 | NUR ---
PT IS NON VERBAL, CRIES OUT WITH POSITION CHANGES. PT IS USEING ACCESSORY MUSCLES FOR BREATHING. PT IS ON 2L/MIN O2 VIA NC. PT WAS TRANSITIONED TO COMFORT CARE TODAY. FAMILY IS AT THE BEDSIDE. PT WAS MEDICATED FOR PAIN X2 SO FAR TODAY. SCOPLAMINE PATCH WAS APPLIED. ATROPINE GTTS GIVEN FOR EXCESSIVE SECREATIONS. CALL LIGHT IN REACH. PT APPEARS COMFORTABLE AT THIS TIME
--- NOTE | 2023-02-05 04:11 | NUR ---
PATIENT AT APPROXIMATELY 314. NIECE HARITHA WAS NOTIFIED AT 0340 OF PATIENTS . FAMILY HAS OPTED TO USE [facility], BUT WILL BE COMING TO ROOM SHORTLY TO SAY GOODBYES. DINA HAS DEMENTIA AND WILL NOT THEREFORE BE MAKING ARRANGEMENTS. HARITHA'S NUMBER IS [phone].
--- NOTE | 2023-02-05 07:13 | NUR ---
DISCHARGE PT PICKED UP BY VIKRAM MALIK [facility]. BELONGINGS SENT WITH BODY
== END 2023-02-05 03:15 | DRG 208 ==
LOC: ER 12:11 → PCU 14:08 → ICUE 14:08 → MEDS 14:08 → ICUE 14:40 → PCU 01-26 16:16 → MEDS 01-29 04:50
PROVIDERS: Emergency Medicine; Hospitalist; Internal Medicine; Internal Medicine Critical Care Medicine; Student in an Organized Health Care Education/Training Program; ADMIT Hospitalist
PROC: 5A1945Z Respiratory Ventilation, 24-96 Consecutive Hours (ICD-10-PCS; 2023-01-23)
PROC: 4A033R1 Measurement of Arterial Saturation, Peripheral, Percutaneous Approach (ICD-10-PCS; 2023-01-24)
PROC: 0BH17EZ Insertion of Endotracheal Airway into Trachea, Via Natural or Artificial Opening (ICD-10-PCS; principal; 2023-01-26)
PROC: 8E0ZXY6 Isolation (ICD-10-PCS; 2023-01-26)
DX: U07.1 COVID-19 (principal); G92.8 Other toxic encephalopathy; J96.01 Acute respiratory failure with hypoxia; I21.A1 Myocardial infarction type 2; N18.6 End stage renal disease; N17.0 Acute kidney failure with tubular necrosis; I63.9 Cerebral infarction, unspecified; Z66 Do not resuscitate; Z51.5 Encounter for palliative care; J12.82 Pneumonia due to coronavirus disease 2019; I13.2 Hypertensive heart and chronic kidney disease with heart failure and with stage 5 chronic kidney disease, or end stage renal disease; A04.72 Enterocolitis due to Clostridium difficile, not specified as recurrent; E87.0 Hyperosmolality and hypernatremia; E78.5 Hyperlipidemia, unspecified; D50.9 Iron deficiency anemia, unspecified; D63.1 Anemia in chronic kidney disease; R29.810 Facial weakness; R47.81 Slurred speech; E87.6 Hypokalemia; E11.649 Type 2 diabetes mellitus with hypoglycemia without coma; I08.3 Combined rheumatic disorders of mitral, aortic and tricuspid valves; I27.20 Pulmonary hypertension, unspecified; I25.10 Atherosclerotic heart disease of native coronary artery without angina pectoris; R13.10 Dysphagia, unspecified; I25.2 Old myocardial infarction; I25.5 Ischemic cardiomyopathy; R47.02 Dysphasia; E11.22 Type 2 diabetes mellitus with diabetic chronic kidney disease; Z95.0 Presence of cardiac pacemaker; Z95.2 Presence of prosthetic heart valve; Z79.899 Other long term (current) drug therapy; Z85.46 Personal history of malignant neoplasm of prostate; Z87.891 Personal history of nicotine dependence; Z98.49 Cataract extraction status, unspecified eye; Z99.81 Dependence on supplemental oxygen; Z95.5 Presence of coronary angioplasty implant and graft; Z79.02 Long term (current) use of antithrombotics/antiplatelets; Z79.84 Long term (current) use of oral hypoglycemic drugs
CPT/HCPCS: 31500; 36415; 36600; 51702; 70450; 71045; 71250; 80047; 80048; 80053; 80069; 80202; 81001; 82248; 82306; 82550; 82803; 82947; 83605; 83735; 83880; 83970; 84100; 84132; 84145; 84443; 84484; 85014; 85025; 85027; 85045; 85379; 85520; 85610; 85730; 86704; 86708; 86803; 87040; 87070; 87205; 87324; 87340; 87507; 87633; 92526; 92610; 93005; 93010; 93880; 94002; 94003; 94640; 94660; 94664; 94760; 94762; 96374-59; 97110; 97163; 97166; 97530; 99291-25; A9270; C1751; C8929; C9113; J0330; J0456; J1644; J1720; J1815; J2060; J2270; J2310; J2405; J2543; J2704; J3010; J3370; J3480; J7042; J7050; J7070; J7120; J7121; Q5106; Q9957; U0002